=== PATIENT | male | born 1955 | race Caucasian/White ===

== ENCOUNTER 2018-07-24 10:07 | Outpatient (CLI) | payer MEDICARE, BC ==
[~2018-07-24 10:07] MED LIST: ISOVUE-370 76%-LOCM 1 ML ONE
--- NOTE | 2018-07-24 13:31 | CT ---
CONTRAST ENHANCED CT CHEST, ABDOMEN AND PELVIS: Date: 07-24-18 Comparison: CT from [facility], 10-24-16. FINDINGS: Contrast enhanced CT images of the chest, abdomen, and pelvis demonstrate some areas of lung parenchy mal scarring in the lung bases. Areas of patchy airspace opacity is also seen in the right middle lob e. These may represent chronic lung parenchymal changes. No evidence of mediastinal, axillary, or hilar lymphadenopathy are seen. Coronary artery calcificatio ns seen. The liver contains an area of hypodensity compatible with a stable hepatic cyst. No newly developed l esions seen. The gallbladder is grossly unremarkable and partially contracted. The pancreas is unrema rkable. The spleen is unremarkable. Adrenal glands and kidneys are again visualized. Areas of exophytic density seen in the lower pole of the right kidney measuring approximately 5.3 x 5.4 cm. This may represent a complex cyst. The overal l size is not significantly changed, however. The density is slightly more pronounced when compared t o the previous exam. I cannot exclude the possibility of a cystic neoplasm of the lower pole of the r ight kidney. Small exophytic cyst seen in posterior aspect of the left kidney. This is less pronounced and definit adelaida smaller than on the previous comparison CT from 2017. No evidence of periaortic lymphadenopathy seen. No definite evidence of pelvic or masses seen. 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 IMPRESSION: Exophytic lower pole right renal lesion appears to have a less cystic appearance and more of a periph eral solid appearance. I cannot exclude the possibility that this represents a developing lower lobe malignancy. The overall size of the lesion is, however, slightly smaller than on the previous exam fr om 2017. POS: [facility]
== END 2018-07-24 10:08 | disposition home or self-care (01) ==
LOC: BICCT 10:07
PROVIDERS: ATTEND Internal Medicine Medical Oncology
DX: C91.10 Chronic lymphocytic leukemia of B-cell type not having achieved remission (principal); N28.9 Disorder of kidney and ureter, unspecified
CPT/HCPCS: 71260; 74177

== ENCOUNTER 2018-08-02 08:37 | Outpatient (CLI) | payer MEDICARE, BC ==
[2018-08-02] MEDS ORDERED: Iopamidol 370 76% 100 ML VIAL ONE (14:47)
--- NOTE | 2018-08-05 07:27 | CT ---
CT ABDOMEN WITH AND WITHOUT CONTRAST: COMPARISON: Reference made to a CT from 07/24/2018. Reference also made to a CT from the [facility] from September 2016. FINDINGS: There is a complex, exophytic, cystic mass, which emanates from the lateral confines of the lower solange e of the right kidney. The mass measures 5.9 x 4.9 x 5.7 cm in diameter. There is a thick, peripher al, intrinsic, hyperdense complexity of the cyst, with subtle internal complex hyperdensity as well. There is associated enhancement suggested within the intrinsically hyperdense component. There is a cyst involving the posterior segment, right hepatic lobe. There are a few small hypodensi ties of the left kidney, too small to definitively characterize. There is a focal cleft of the later al cortical margin of the upper pole right kidney with insinuating hypodensity. This could relate to sequela from prior infarct. No adrenal mass. The spleen is unremarkable. No intrinsic pathology o f the pancreas. The bowel is incompletely evaluated without enteric contrast administration. Scatte red vascular disease is present. Scattered linear densities in the lung bases may relate to scar and /or atelectasis. There is granulomatous calcification at the left lung base. There is a nonspecific sclerotic focus of the L4 vertebral body. IMPRESSION: Findings indicative of a complex cystic mass emanating from the lower pole of the right kidney. Cyst ic renal cell carcinoma is the diagnosis of exclusion. A urologic consultation is recommended. POS: [facility]
== END 2018-08-02 08:38 | disposition home or self-care (01) ==
LOC: CT 08:37
PROVIDERS: ATTEND Internal Medicine Medical Oncology
DX: N28.1 Cyst of kidney, acquired (principal); N28.89 Other specified disorders of kidney and ureter
CPT/HCPCS: 74170; Q9967

== ENCOUNTER 2020-07-22 07:27 | Outpatient (CLI) | payer MEDICARE, BC ==
--- NOTE | 2020-07-22 09:09 | CT ---
EXAM: CT NECK SOFT TISSUE POST CONTRAST: HISTORY:CLL follow-up. COMPARISON:04/02/2014, 09/29/2009 CORRELATION:None FINDINGS: Brain parenchyma: Redemonstration of an arachnoid cyst identified but previously evaluated left middl e cranial fossa arachnoid cyst. Sinuses: Left maxillary sinus mucus retention cysts. Adequate mastoid air cell aeration. Orbits: Visualized orbits are grossly unremarkable. Nasopharynx:No mucosal abnormality. Oral cavity:Aerodigestive tract is patent. No mucosal abnormality. Limited evaluation of the oral cav ity due to dental amalgam artifact. Midline fatty raphae of the tongue is preserved. Hypopharynx: No mucosal abnormality. Epiglottis has a normal caliber. Preepiglottic fat is preserved .. Larynx: No mucosal abnormality with regards to the supraglottic, glottic and subglottic larynx. Paraspinal muscles: Symmetric attenuation of the paraspinal muscles and symmetric attenuation of the sternocleidomastoid muscles.. Parotid and salivary glands: Stable fatty attenuation of the parotid glands. No evidence of a intrapa rotid lesion. Symmetric attenuation of the submandibular glands. Vessels: No significant stenosis. Technique limits evaluation. Thyroid gland: Asymmetric prominence of the right thyroid lobe. There does appear to be isodense righ t thyroid lobe mass which is exophytic. Mass is best demonstrated on the coronal images and measures 2.9 cm in the craniocaudal dimension. Spine: Vertebral body height is maintained. No fracture. No significant central canal stenosis or sig nificant neural foraminal narrowing. Limited evaluation due to technique. Lymph nodes: Enlarged right level 5 lymph node measures 1.2 x 1.3 cm, previously measuring 0.8 x 0.9 cm. Upper normal left level 5 lymph node measures 1.2 x 0.6 cm, previously measuring 1.0 x 0.5 cm. Lung apices and upper mediastinum: Chronic lung parenchymal changes. IMPRESSION: 1. Bilateral level 5 lymph nodes as described above. Slight interval increase in size of both lymph n odes when compared to the examination from 2013. When compared to the examination from 2009, there is marked reduction of lymphadenopathy. 2. Exophytic right thyroid lobe nodule, best demonstrated on the coronal images. Dedicated thyroid ul trasound is recommended. CODE T
--- NOTE | 2020-07-22 09:23 | CT ---
CT OF THE CHEST WITH IV CONTRAST INDICATION: History of chronic lymphocytic leukemia COMPARISON: Prior CT of the chest, abdomen and pelvis dated July 24, 2018 and a CTA of the chest d ated July 10, 2017 FINDINGS: CHEST: Lungs: Mild scattered centrilobular emphysema is stable. The patchy tree-in-bud type nodular opacitie s of the right upper lobe have redistributed. There is a small residual area tree-in-bud nodularity involving the anterior right upper lobe on image 43. There is a new sub-4 mm pulmonary nodule within the right upper lobe on image 29 of series 3. There is new tree-in-bud nodular opacity within the posterior segment of the right upper lobe on image 25 of series 3 and image 31 of series 3. There is new tree-in-bud nodular opacities within the posterior lateral right lower lobe on image 54 series 3 and in the posterior medial right lower lobe on image 62 of series 3. This is present also in the l eft lower lobe on image 63 of series 3. There is a new 5 mm pulmonary nodule in the right lower lobe on image 48 of series 3. Pleural space: No effusion. Mediastinum: Coronary artery and thoracic aortic calcifications. No lymphadenopathy. Upper abdomen:Stable right hepatic lobe cyst and exophytic cyst partially solid mass off the lower po le right kidney measuring 5.2 cm. Smaller renal hypodensities and renal cortical scarring is similar. Osseous structures: No acute osseous abnormality. No destructive osteolytic or osteoblastic lesion i s identified. There is scattered degenerative and osteoarthritic changes. Soft tissues:Normal. IMPRESSION: 1. New areas of tree-in-bud nodular opacities seen within both lungs. Findings are more suspicious fo r a respiratory bronchiolitis related to the patient's COPD. Would recommend appropriate therapy and short-term CT follow-up in 6-8 weeks to document resolution. 2. No lymphadenopathy evident. 3. Stable partially solid mass off the lower pole the right kidney measuring 5.2 cm.
== END 2020-07-22 07:28 | disposition home or self-care (01) ==
LOC: BICCT 07:27
PROVIDERS: ATTEND Internal Medicine Medical Oncology
DX: C91.10 Chronic lymphocytic leukemia of B-cell type not having achieved remission (principal); D80.1 Nonfamilial hypogammaglobulinemia; R91.8 Other nonspecific abnormal finding of lung field; N28.89 Other specified disorders of kidney and ureter; E04.1 Nontoxic single thyroid nodule; R59.0 Localized enlarged lymph nodes
CPT/HCPCS: 70490; 71260; 74160

== ENCOUNTER 2020-09-06 14:28 | Outpatient (CLI) | payer MEDICARE, BC | END 2020-09-06 14:29 | disposition home or self-care (01) | LOC: BICRAD 14:28 | PROVIDERS: ATTEND Internal Medicine Pulmonary Disease | DX: R06.00 Dyspnea, unspecified (principal) | CPT/HCPCS: 71046 ==

== ENCOUNTER 2020-12-31 16:57 | Day surgery (SDC) | payer MEDICARE, BC ==
[2020-12-31] MEDS ORDERED: Cyclopentolate 1% Opth Drop 2 ML BOT FS SCH (17:15)
[2020-12-31] MEDS ORDERED: Phenylephrine 2.5% Ophth Soln 5 ML BOT FS SCH (17:15)
[2020-12-31] MEDS ORDERED: Fluorouracil 100 MG, Enoxaparin Sodium 25 MG, EPINEPHrine 0.3 MG, Dextrose 50% 3 ML in ... IRR SCH (17:15)
[2020-12-31] MEDS ORDERED: Phenylephrine 2.5% Ophth Soln 5 ML BOT ONE (17:38)
[2020-12-31] MEDS ORDERED: Cyclopentolate 1% Opth Drop 2 ML BOT ONE (17:38)
[2020-12-31] MEDS ORDERED: Fluorouracil 100 MG, Enoxaparin Sodium 25 MG, EPINEPHrine 0.3 MG in Ophthalmic Irrigati... IRR SCH (17:45)
[2020-12-31] MEDS ORDERED: Fentanyl 100 MCG/2 ML VIAL ONE (18:02)
[2020-12-31] MEDS ORDERED: Lidocaine 4% PF 5 ML AMP ONE (18:30)
[2020-12-31] MEDS ORDERED: ePHEDrine Sulfate 50 MG/10 ML VIAL ONE (18:30)
[2020-12-31] MEDS ORDERED: Maxitrol 0.1% Opth Oint 3.5 GM TUBE ONE (18:30)
[2020-12-31] MEDS ORDERED: Triamcinolone 40 MG/ML VIAL ONE (18:30)
[2020-12-31] MEDS ORDERED: Lidocaine 1% PF 5 ML VIAL ONE (18:30)
[2020-12-31] MEDS ORDERED: PROPOFOL 200 MG/20 ML VIAL ONE (18:30)
[2020-12-31] MEDS ORDERED: Rocuronium Bromide 10 MG/ML (10ML VIAL) ONE (18:30)
[2020-12-31] MEDS ORDERED: Ondansetron PF 4 MG/2 ML Vial ONE (18:30)
[2020-12-31] MEDS ORDERED: CEFAZOLIN 1 GM VIAL ONE (18:30)
[2020-12-31] MEDS ORDERED: Dexamethasone 20 MG/5 ML VIAL ONE (18:30)
[2020-12-31] MEDS ORDERED: Succinylcholine 200 MG/10 ml SYRINGE FS ONE (18:30)
[2020-12-31] MEDS ORDERED: Bupivacaine PF 0.75% SDV 10 ML ONE (18:30)
[2020-12-31] MEDS ORDERED: Enoxaparin Sodium 30 MG/0.3 ML SYRINGE ONE (18:30)
[2020-12-31] MEDS ORDERED: SUGAMMADEX SODIUM 500 MG/5 ML VIAL ONE (19:10)
== END 2020-12-31 21:02 | disposition home or self-care (01) ==
LOC: SDC/OP 16:57
PROVIDERS: ATTEND Ophthalmology Retina Specialist
PROC: 08T43ZZ Resection of Right Vitreous, Percutaneous Approach (ICD-10-PCS; principal; 2020-12-31)
PROC: 08QE3ZZ Repair Right Retina, Percutaneous Approach (ICD-10-PCS; 2020-12-31)
DX: H33.021 Retinal detachment with multiple breaks, right eye (principal)
CPT/HCPCS: 67025; 93005; 93010; J0171; J0690; J1100; J1650; J2405; J2704; J3010; J3301; J3490; J9190

== ENCOUNTER 2021-05-17 11:36 | Outpatient (CLI) | payer MEDICARE, BC ==
[2021-05-17] MEDS ORDERED: Magnevist 469MG/ML 20 ML VIAL ONE (11:45)
== END 2021-05-17 11:37 | disposition home or self-care (01) ==
LOC: MRI 11:36
PROVIDERS: ATTEND Nurse Practitioner Acute Care
DX: R41.3 Other amnesia (principal)
CPT/HCPCS: 70553; 82565

== ENCOUNTER 2022-04-12 13:36 | Outpatient (CLI) | payer MEDICARE, BC | END 2022-04-12 13:37 | disposition home or self-care (01) | LOC: BICCT 13:36 | PROVIDERS: ATTEND Internal Medicine | DX: J44.9 Chronic obstructive pulmonary disease, unspecified (principal); R91.8 Other nonspecific abnormal finding of lung field | CPT/HCPCS: 71250 ==

== ENCOUNTER 2022-05-15 11:57 | Outpatient (CLI) | payer MEDICARE, BC ==
[2022-05-15 12:49] LABS: #Eosinphils 0.3 10x3/uL (0.0-0.5); #Monocytes 0.4 10x3/uL (0.0-1.1); #Neutrophils 3.4 10x3/uL (1.5-8.4); %Basophils 0.6 % (0.0-2.0); %Eosinophils 4.1 % (0.0-6.0); %Lymphocytes 35.6 % (18.0-47.0); %Monocytes 5.8 % (0.0-10.0); %Neutrophils 53.6 % (40.0-75.0); Hemoglobin 12.9 g/dL (13.5-17.5); Mean Corpuscular HGB CONC 33.8 g/dL (32.0-36.0); Mean Corpuscular Hemoglobin 31.2 pg (27.0-33.0); Mean Corpuscular Volume 92.5 fl (81.2-95.1); Mean Platelet Volume 10.9 fl (7.4-10.4); Platelet Count 119 10x3/uL (150-450); RBC Distribution Width 13.9 % (11.5-14.5); Red Blood Cell (RBC) Count 4.13 10x6/uL (4.32-5.72); White Blood Cell (WBC) Count 6.4 10x3/uL (3.5-10.5)
[2022-05-15 13:08] LABS: Anion Gap 13 mmol/L (10-20); BUN (Urea Nitrogen) 14 mg/dL (8.4-25.7); Calc. Creatinine Clearance 0 mL/min (70-130); Calcium 8.6 mg/dL (7.8-10.44); Carbon Dioxide 23 mmol/L (23-31); Chloride 107 mmol/L (98-107); Estimated GFR 94; Glucose 135 mg/dL (80-115); Potassium 3.9 mmol/L (3.5-5.1); Sodium 139 mmol/L (136-145)
== END 2022-05-15 11:58 | disposition home or self-care (01) ==
LOC: LABBT 11:57
PROVIDERS: ATTEND Specialist
DX: Z01.818 Encounter for other preprocedural examination (principal); C91.10 Chronic lymphocytic leukemia of B-cell type not having achieved remission
CPT/HCPCS: 80048; 85025; 93005; 93010

== ENCOUNTER 2022-05-17 09:19 | Day surgery (SDC) | payer MEDICARE, BC ==
[2022-05-16 15:39] VITALS: BMI 46.1
[2022-05-17] MEDS ORDERED: Lidocaine 1% PF 5 ML VIAL ONE (09:40)
[2022-05-17] MEDS ORDERED: Bupivacaine HCl 0.5%/Epinephrine 1:200,000/PF 30 ml Vial ONE (09:40)
[2022-05-17] MEDS ORDERED: Lidocaine 2% PF 5 ML VIAL ONE (09:42)
[2022-05-17] MEDS ORDERED: fentaNYL PF 100 MCG/2 ML SYRINGE ONE (11:14)
[2022-05-17] MEDS ORDERED: Bupivacaine/Epinephrine 0.25% 30 ML VIAL ONE (11:23)
[2022-05-17] MEDS ORDERED: CEFAZOLIN 2 GM VIAL ONE (11:26)
[2022-05-17] MEDS ORDERED: Sodium Chloride 0.9% 100 ML ONE (11:26)
[2022-05-17] MEDS ORDERED: PROPOFOL 200 MG/20 ML VIAL ONE (11:38)
[2022-05-17] MEDS ORDERED: Dexamethasone 20 MG/5 ML VIAL ONE (11:38)
[2022-05-17] MEDS ORDERED: Ondansetron PF 4 MG/2 ML Vial ONE (11:38)
[2022-05-17] MEDS ORDERED: PHENYLEPHRINE-NS 100 MCG/ML 10 ML SYRINGE ONE (11:38)
== END 2022-05-17 14:07 | disposition home or self-care (01) ==
LOC: SDC 09:19
PROVIDERS: ATTEND Specialist
PROC: 0JH60WZ Insertion of Totally Implantable Vascular Access Device into Chest Subcutaneous Tissue and Fascia, Open Approach (ICD-10-PCS; principal; 2022-05-17)
PROC: 02HV33Z Insertion of Infusion Device into Superior Vena Cava, Percutaneous Approach (ICD-10-PCS; 2022-05-17)
DX: C91.10 Chronic lymphocytic leukemia of B-cell type not having achieved remission (principal); D63.0 Anemia in neoplastic disease; I48.91 Unspecified atrial fibrillation; J45.909 Unspecified asthma, uncomplicated; F17.210 Nicotine dependence, cigarettes, uncomplicated; E66.01 Morbid (severe) obesity due to excess calories; Z68.42 Body mass index [BMI] 45.0-49.9, adult; Z79.899 Other long term (current) drug therapy
CPT/HCPCS: 71045; C1788; J1100; J1642; J2001; J2405; J2704; J3490

== ENCOUNTER 2022-06-21 20:01 | Emergency (ER) | payer MEDICARE, BC ==
[2022-06-21 20:46] LABS: #Eosinphils 0.2 thou/uL (0.0-0.7); #Lymphocytes 2.3 thou/uL (1.20-3.40); #Monocytes 0.4 thou/uL (0.11-0.59); #Neutrophils 3.8 thou/uL (1.40-6.50); %Basophils 0.1 % (0.0-1.0); %Eosinophils 3.2 % (0.0-10.0); %Lymphocytes 34.2 % (21.0-51.0); %Monocytes 5.6 % (0.0-10.0); %Neutrophils 56.9 % (42.0-75.0); Hemoglobin 12.7 g/dL (14.0-18.0); Mean Corpuscular HGB CONC 34.2 g/dL (32.0-36.0); Mean Corpuscular Hemoglobin 32.3 pg (27.0-31.0); Mean Corpuscular Volume 94.2 fl (78.0-98.0); Mean Platelet Volume 8.9 fL (7.4-10.4); Platelet Count 123 10x3/uL (130-400); RBC Distribution Width 13.1 % (11.5-14.5); Red Blood Cell (RBC) Count 3.95 mill/uL (4.70-6.10); White Blood Cell (WBC) Count 6.6 10x3/uL (4.8-10.8)
[2022-06-21] MEDS ORDERED: Ketorolac Tromethamine 30 MG/ML VIAL ONE (20:51)
[2022-06-21] MEDS ORDERED: Clindamycin/D5W 900 mg/50 ml Premix Bag ONE (20:51)
[2022-06-21] MEDS ORDERED: Lidocaine 4% Cream 5 GM TUBE w/ Tegaderm ONE ×2 (20:54→21:28)
[2022-06-21] MEDS ORDERED: Diltiazem HCl 125 MG, Admixture Fee 1 EACH in Sodium Chloride 0.9% 100 ML IVPB SCH (21:00)
[2022-06-21 21:10] LABS: ALT (SGPT) 14 U/L (8-55); AST (SGOT) 31 U/L (5-34); Albumin 3.9 g/dL (3.4-4.8); Alkaline Phosphatase 75 U/L (40-110); Anion Gap 14 mmol/L (10-20); BUN (Urea Nitrogen) 10 mg/dL (8.4-25.7); Bilirubin, Total 0.7 mg/dL (0.2-1.2); Calc. Creatinine Clearance 0 mL/min (70-130); Calcium 8.9 mg/dL (7.8-10.44); Carbon Dioxide 24 mmol/L (23-31); Chloride 105 mmol/L (98-107); Estimated GFR 76; Glucose 76 mg/dL (80-115); Potassium 3.8 mmol/L (3.5-5.1); Protein, Total 6.9 g/dL (5.8-8.1); Sodium 139 mmol/L (136-145)
== END 2022-06-21 22:14 | disposition left against medical advice (07) ==
LOC: ERS 20:01
DX: M70.42 Prepatellar bursitis, left knee (principal); I48.91 Unspecified atrial fibrillation; L03.116 Cellulitis of left lower limb; I10 Essential (primary) hypertension; E78.5 Hyperlipidemia, unspecified; J44.9 Chronic obstructive pulmonary disease, unspecified; F17.210 Nicotine dependence, cigarettes, uncomplicated; Z79.899 Other long term (current) drug therapy
CPT/HCPCS: 36415; 80053; 83605; 83880; 84484; 85025; 87040; 87070; 87205; 93005; 94760; 96374; 96375; 96376; J1885; J3490

== ENCOUNTER 2022-12-15 23:38 | Observation (INO) | payer MEDICARE, BC ==
[~2022-12-15 23:38] MED LIST changes: -ISOVUE-370 76%-LOCM 1 ML ONE; +Iopamidol-370 76% 500 ML MDV (1 ML CHARGE) ONE
[2022-12-15 23:58] LABS: #Basophils 0.1 thou/uL (0.0-0.2); #Eosinphils 0.3 thou/uL (0.0-0.7); #Monocytes 0.3 thou/uL (0.11-0.59); #Neutrophils 2.8 thou/uL (1.40-6.50); %Basophils 0.9 % (0.0-1.0); %Eosinophils 4.8 % (0.0-10.0); %Lymphocytes 39.7 % (21.0-51.0); %Monocytes 5.9 % (0.0-10.0); Hemoglobin 13.2 g/dL (14.0-18.0); Mean Corpuscular HGB CONC 33.9 g/dL (32.0-36.0); Mean Corpuscular Hemoglobin 31.8 pg (27.0-31.0); Mean Corpuscular Volume 93.7 fl (78.0-98.0); Mean Platelet Volume 10.8 fL (7.4-10.4); Platelet Count 110 10x3/uL (130-400); RBC Distribution Width 14.1 % (11.5-14.5); Red Blood Cell (RBC) Count 4.15 mill/uL (4.70-6.10); White Blood Cell (WBC) Count 5.8 10x3/uL (4.8-10.8)
[2022-12-16 00:12] LABS: ALT (SGPT) 7 U/L (8-55); AST (SGOT) 20 U/L (5-34); Albumin 3.6 g/dL (3.4-4.8); Alkaline Phosphatase 55 U/L (40-110); Anion Gap 12 mmol/L (10-20); BUN (Urea Nitrogen) 15 mg/dL (8.4-25.7); Bilirubin, Total 0.8 mg/dL (0.2-1.2); CK (CPK) 102 U/L (30-200); Calc. Creatinine Clearance 0 mL/min (70-130); Calcium 8.7 mg/dL (7.8-10.44); Carbon Dioxide 19 mmol/L (23-31); Chloride 110 mmol/L (98-107); Estimated GFR 72; Globulin 2.5 g/dL (2.4-3.5); Glucose 123 mg/dL (80-115); Potassium 4.1 mmol/L (3.5-5.1); Protein, Total 6.1 g/dL (5.8-8.1); Sodium 137 mmol/L (136-145)
[2022-12-16 00:28] LABS: INR-International Normal Ratio 0.9; Prothrombin Time 12.9 sec (12.0-14.7)
[2022-12-16 00:47] LABS: Anisocytosis SLIGHT = 6-15 cells HPF (0-5); CellaVision Operator ID LAB.JMM; Platelet Adequacy Comment Platelets Decreased; Polychromasia SLIGHT = 2-3 cells HPF (0-2)
[2022-12-16] MEDS ORDERED: Aspirin Chewable 81 MG TAB ONE (01:15)
[2022-12-16] MEDS ORDERED: Albuterol 200 PUFF (6.7GM INHALER) INH PRN (01:49)
[2022-12-16 04:03] VITALS: BMI 45.9
[2022-12-16 05:35] LABS: #Eosinphils 0.3 thou/uL (0.0-0.7); #Monocytes 0.4 thou/uL (0.11-0.59); #Neutrophils 3.1 thou/uL (1.40-6.50); %Basophils 0.5 % (0.0-1.0); %Eosinophils 4.8 % (0.0-10.0); %Lymphocytes 35.6 % (21.0-51.0); %Neutrophils 52.3 % (42.0-75.0); Mean Corpuscular HGB CONC 34.4 g/dL (32.0-36.0); Mean Corpuscular Hemoglobin 32.1 pg (27.0-31.0); Mean Corpuscular Volume 93.3 fl (78.0-98.0); Mean Platelet Volume 10.7 fL (7.4-10.4); RBC Distribution Width 14.1 % (11.5-14.5); Red Blood Cell (RBC) Count 4.05 mill/uL (4.70-6.10)
[2022-12-16 05:57] LABS: Anion Gap 9 mmol/L (10-20); BUN (Urea Nitrogen) 13 mg/dL (8.4-25.7); Calc. Creatinine Clearance 147 mL/min (70-130); Calcium 8.8 mg/dL (7.8-10.44); Carbon Dioxide 25 mmol/L (23-31); Chloride 107 mmol/L (98-107); Estimated GFR 76; Glucose 90 mg/dL (80-115); Potassium 3.8 mmol/L (3.5-5.1); Sodium 137 mmol/L (136-145)
[2022-12-16 06:40] LABS: Platelet Count 106 10x3/uL (130-400)
[2022-12-16] MEDS: Aspirin 81 mg Enteric Coated Tablet PO SCH (09:16)
[2022-12-16] MEDS ORDERED: Sotalol HCl 80 MG TAB PO SCH ×2 (12:00)
[2022-12-16] MEDS: Nystatin 500,000 UNITS/5 ML UDCUP SSW SCH ×3 (12:23→20:04)
[2022-12-16] MEDS: Sacubitril 49 MG/Valsartan 51 MG TABLET PO SCH (20:02)
[2022-12-16] MEDS: Sotalol HCl 80 MG TAB PO SCH (20:03)
[2022-12-16] MEDS ORDERED: Tamsulosin HCl 0.4 MG CAP PO SCH (21:00)
[2022-12-16] MEDS ORDERED: Simvastatin 10 MG TAB PO SCH (21:00)
[2022-12-16] MEDS ORDERED: Sertraline 100 MG TAB PO SCH (21:00)
[2022-12-17] MEDS ORDERED: Empagliflozin 10 MG TAB PO SCH (09:00)
[2022-12-17] MEDS ORDERED: Potassium Chloride 8 MEQ TAB PO SCH (09:00)
[2022-12-17] MEDS ORDERED: Furosemide 20 MG TAB PO SCH (09:00)
[2022-12-17] MEDS: Aspirin 81 mg Enteric Coated Tablet PO SCH (09:44)
[2022-12-17] MEDS: Nystatin 500,000 UNITS/5 ML UDCUP SSW SCH ×2 (09:44→12:48)
[2022-12-17] MEDS: Sotalol HCl 80 MG TAB PO SCH (09:44)
[2022-12-17] MEDS: Sacubitril 49 MG/Valsartan 51 MG TABLET PO SCH (09:45)
[2022-12-17 11:30] VITALS: BP 144/93; TEMP 97.7
== END 2022-12-17 13:30 | disposition home or self-care (01) ==
LOC: ERS 23:38 → NEURO 12-16 00:56
PROVIDERS: ADMIT Family Medicine; ATTEND Internal Medicine
DX: R53.1 Weakness (principal); I48.91 Unspecified atrial fibrillation; C85.90 Non-Hodgkin lymphoma, unspecified, unspecified site; I11.0 Hypertensive heart disease with heart failure; I50.22 Chronic systolic (congestive) heart failure; I25.10 Atherosclerotic heart disease of native coronary artery without angina pectoris; N40.0 Benign prostatic hyperplasia without lower urinary tract symptoms; R47.81 Slurred speech; J44.9 Chronic obstructive pulmonary disease, unspecified; F41.8 Other specified anxiety disorders; F17.210 Nicotine dependence, cigarettes, uncomplicated; E78.5 Hyperlipidemia, unspecified; Z90.89 Acquired absence of other organs; Z79.82 Long term (current) use of aspirin; Z79.899 Other long term (current) drug therapy
CPT/HCPCS: 70450; 70496; 70498; 71045; 76536; 80048; 82140; 82550; 84484; 85025; 85610; 85730; 93005; 93306; 96372; 99285; G0378 ×3; 36415; 80053; 84443; J1650; Q9967

== ENCOUNTER 2023-01-11 09:12 | Outpatient (CLI) | payer MEDICARE, BC | END 2023-01-11 09:13 | disposition home or self-care (01) | LOC: CT 09:12 | PROVIDERS: ATTEND Internal Medicine Medical Oncology | DX: C91.10 Chronic lymphocytic leukemia of B-cell type not having achieved remission (principal); R59.0 Localized enlarged lymph nodes | CPT/HCPCS: 71260; 74177 ==

== ENCOUNTER 2023-04-08 00:38 | Emergency (ER) | payer MEDICARE, BC ==
[2023-04-08 01:22] LABS: #Eosinphils 0.2 thou/uL (0.0-0.7); #Monocytes 0.3 thou/uL (0.11-0.59); #Neutrophils 4.7 thou/uL (1.40-6.50); %Basophils 0.5 % (0.0-1.0); %Eosinophils 2.3 % (0.0-10.0); %Monocytes 3.6 % (0.0-10.0); %Neutrophils 62.2 % (42.0-75.0); Hematocrit 38.7 % (42.0-52.0); Hemoglobin 13.4 g/dL (14.0-18.0); Mean Corpuscular HGB CONC 34.6 g/dL (32.0-36.0); Mean Corpuscular Hemoglobin 32.5 pg (27.0-31.0); Mean Corpuscular Volume 93.9 fl (78.0-98.0); Mean Platelet Volume 11.1 fL (7.4-10.4); Platelet Count 105 10x3/uL (130-400); RBC Distribution Width 13.8 % (11.5-14.5); Red Blood Cell (RBC) Count 4.12 mill/uL (4.70-6.10); White Blood Cell (WBC) Count 7.5 10x3/uL (4.8-10.8)
[2023-04-08] MEDS ORDERED: cefTRIAXone (ROCEPHIN) 2 GM VIAL ONE (01:48)
[2023-04-08 01:49] LABS: ALT (SGPT) 7 U/L (8-55); AST (SGOT) 18 U/L (5-34); Albumin 3.9 g/dL (3.4-4.8); Alkaline Phosphatase 62 U/L (40-110); Anion Gap 13 mmol/L (10-20); BUN (Urea Nitrogen) 16 mg/dL (8.4-25.7); Bilirubin, Total 0.6 mg/dL (0.2-1.2); Calc. Creatinine Clearance 0 mL/min (70-130); Calcium 8.8 mg/dL (7.8-10.44); Carbon Dioxide 22 mmol/L (23-31); Chloride 107 mmol/L (98-107); Estimated GFR 67; Globulin 2.7 g/dL (2.4-3.5); Glucose 122 mg/dL (80-115); Potassium 4.2 mmol/L (3.5-5.1); Protein, Total 6.6 g/dL (5.8-8.1); Sodium 138 mmol/L (136-145)
[2023-04-08 01:59] LABS: Troponin I Less than 0.010 ng/mL (< 0.028)
[2023-04-08] MEDS ORDERED: Azithromycin 500 MG VIAL ONE (02:20)
[2023-04-08 02:53] LABS: SARS-CoV-2 NAA Rapid Test Not Detected (NotDetected)
== END 2023-04-08 03:39 | disposition home or self-care (01) ==
LOC: ERS 00:38
DX: J18.9 Pneumonia, unspecified organism (principal); I48.91 Unspecified atrial fibrillation; I10 Essential (primary) hypertension; E78.5 Hyperlipidemia, unspecified; I25.10 Atherosclerotic heart disease of native coronary artery without angina pectoris; J44.9 Chronic obstructive pulmonary disease, unspecified; F17.210 Nicotine dependence, cigarettes, uncomplicated; Z79.899 Other long term (current) drug therapy; Z20.822 Contact with and (suspected) exposure to COVID-19
CPT/HCPCS: 0240U; 71046; 80053; 83605; 83880; 84484; 85025; 87040; 93005; J0456; 36415; 96365; 96367; J0696

== ENCOUNTER 2023-04-12 13:29 | Outpatient (CLI) | payer MEDICARE, BC | END 2023-04-12 13:30 | disposition home or self-care (01) | LOC: BICCT 13:29 | PROVIDERS: ATTEND Internal Medicine | DX: J44.9 Chronic obstructive pulmonary disease, unspecified (principal); R91.8 Other nonspecific abnormal finding of lung field; R59.0 Localized enlarged lymph nodes; E04.9 Nontoxic goiter, unspecified | CPT/HCPCS: 71250 ==

== ENCOUNTER 2023-06-22 18:45 | Inpatient (IN) | payer MEDICARE, BC ==
[2023-06-22 19:28] LABS: #Monocytes 0.5 thou/uL (0.11-0.59); #Neutrophils 8.9 thou/uL (1.40-6.50); %Basophils 0.2 % (0.0-1.0); %Eosinophils 0.2 % (0.0-10.0); %Monocytes 4.2 % (0.0-10.0); Hematocrit 37.7 % (42.0-52.0); Mean Corpuscular HGB CONC 34.5 g/dL (32.0-36.0); Mean Corpuscular Hemoglobin 32.1 pg (27.0-31.0); Mean Corpuscular Volume 93.1 fl (78.0-98.0); Mean Platelet Volume 11.2 fL (7.4-10.4); Platelet Count 120 10x3/uL (130-400); Red Blood Cell (RBC) Count 4.05 mill/uL (4.70-6.10); White Blood Cell (WBC) Count 10.6 10x3/uL (4.8-10.8)
[2023-06-22] MEDS ORDERED: Cefepime 2 GM VIAL ONE (19:48)
[2023-06-22] MEDS ORDERED: Vancomycin 1 GM/200 ML (FROZEN) BAG ONE (19:49)
[2023-06-22] MEDS ORDERED: dilTIAZem 25 MG/5 ML VIAL ONE (19:49)
[2023-06-22] MEDS ORDERED: Sodium Chloride 0.9% 100 ML ONE (19:49)
[2023-06-22 19:51] LABS: ALT (SGPT) Less than 7 U/L (8-55); AST (SGOT) 12 U/L (5-34); Albumin 3.8 g/dL (3.4-4.8); Alkaline Phosphatase 56 U/L (40-110); Anion Gap 12 mmol/L (10-20); BUN (Urea Nitrogen) 12 mg/dL (8.4-25.7); Bilirubin, Total 1.4 mg/dL (0.2-1.2); Calc. Creatinine Clearance 0 mL/min (70-130); Calcium 8.6 mg/dL (7.8-10.44); Carbon Dioxide 24 mmol/L (23-31); Chloride 104 mmol/L (98-107); Estimated GFR 68; Globulin 2.3 g/dL (2.4-3.5); Glucose 116 mg/dL (80-115); Magnesium 1.3 mg/dL (1.6-2.6); Potassium 3.7 mmol/L (3.5-5.1); Protein, Total 6.1 g/dL (5.8-8.1); Sodium 136 mmol/L (136-145)
[2023-06-22 19:52] LABS: Bacteria/HPF 1+ HPF (None Seen); Bilirubin Negative (Negative); Blood, Urine 2+ (Negative); CAUTI Indications for Culture Dysuria,urgency,freq; Clarity Turbid (Clear); Glucose, Urine (Dipstick) Normal (Negative); Ketone, Urine Negative (Negative); Leukocyte 500 Leu/uL (Negative); Mucous/LPF Rare LPF (<2+); Nitrite Negative (Negative); Protein, Urine (Dipstick) 100 mg/dL (Neg-Trace); Renal Epithelial 0-3 HPF (None Seen); Specific Gravity, Urine 1.022 (1.002-1.036); Squamous Epithelial 0-3 HPF (0-3); Transitional Epithelial 0-3 HPF (None Seen); WBC/HPF Greater than 50 HPF (0-3); pH, Urine 7.5 (5.0-9.0)
[2023-06-22 19:53] LABS: Urine Culture Reflex Yes Yes
[2023-06-22 19:55] LABS: PTT 26.6 sec (22.9-36.1); Prothrombin Time 13.7 sec (12.0-14.7)
[2023-06-22 19:59] LABS: Troponin I Less than 0.010 ng/mL (< 0.028)
[2023-06-22 20:27] LABS: SARS-CoV-2 NAA Rapid Test Not Detected (NotDetected)
[2023-06-22] MEDS ORDERED: Magnesium 2 GM/50 ML BAG (IN WATER) ONE (20:36)
[2023-06-22 22:27] LABS: Lactic Acid 2.6 mmol/L (0.5-2.2)
[2023-06-22] MEDS ORDERED: dilTIAZem 125 MG/25 ML SDV ONE (22:34)
[2023-06-23] MEDS ORDERED: Digoxin 0.5 MG/2 ML AMP ONE (00:52)
[2023-06-23 02:01] VITALS: BMI 42.9
[2023-06-23] MEDS ORDERED: Ondansetron PF 4 MG/2 ML Vial IVP PRN (03:53)
[2023-06-23] MEDS ORDERED: Acetaminophen 325 MG TAB PO PRN (03:53)
[2023-06-23] MEDS ORDERED: dilTIAZem 125 MG in Sodium Chloride 0.9% 100 ML IVPB SCH (04:00)
[2023-06-23] MEDS ORDERED: Ipratropium/Albuterol 3 ML NEB EZPAP PRN (04:08)
[2023-06-23 04:24] LABS: Hematocrit 36.1 % (42.0-52.0); Hemoglobin 12.5 g/dL (14.0-18.0); Manual Diff?? YES; Mean Corpuscular HGB CONC 34.6 g/dL (32.0-36.0); Mean Corpuscular Hemoglobin 32.9 pg (27.0-31.0); Mean Platelet Volume 11.3 fL (7.4-10.4); Platelet Count 97 10x3/uL (130-400); RBC Distribution Width 14.2 % (11.5-14.5); White Blood Cell (WBC) Count 10.4 10x3/uL (4.8-10.8)
[2023-06-23 04:34] LABS: Delete Auto Diff?? YES
[2023-06-23 04:39] LABS: Lactic Acid 2.1 mmol/L (0.5-2.2)
[2023-06-23 04:43] LABS: Anion Gap 15 mmol/L (10-20); BUN (Urea Nitrogen) 14 mg/dL (8.4-25.7); Calc. Creatinine Clearance 129 mL/min (70-130); Calcium 8.2 mg/dL (7.8-10.44); Carbon Dioxide 22 mmol/L (23-31); Chloride 106 mmol/L (98-107); Estimated GFR 71; Glucose 113 mg/dL (80-115); Magnesium 1.6 mg/dL (1.6-2.6); Potassium 4.1 mmol/L (3.5-5.1); Sodium 139 mmol/L (136-145)
[2023-06-23 04:56] LABS: Band 23 % (5-11); CellaVision Operator ID LAB.CLH1; Lymphocytes 14 % (21-51); Macrocytosis SLIGHT = 6-15 cells HPF (0-5); Monocytes 3 % (0-10); Neutrophil 60 % (42-75); Platelet Adequacy Comment Platelets Decreased; Polychromasia SLIGHT = 2-3 cells HPF (0-2); Total Cell Count 99
[2023-06-23] MEDS: Ipratropium Bromide 2.5 ml Neb NEB SCH ×3 (08:12→19:17)
[2023-06-23] MEDS: cefTRIAXone\\ROCEPHIN 2 GM in Sodium Chloride 0.9% 100 ML IVPB SCH (08:26)
[2023-06-23] MEDS: Sacubitril 49 MG/Valsartan 51 MG TABLET PO SCH ×2 (08:27→20:01)
[2023-06-23] MEDS: Simvastatin 5 MG TAB PO SCH (08:27)
[2023-06-23] MEDS: Sertraline 25 MG TAB PO SCH (08:27)
[2023-06-23] MEDS: Tamsulosin HCl 0.4 MG CAP PO SCH (08:28)
[2023-06-23] MEDS: Sotalol HCl 80 MG TAB PO SCH ×2 (08:28→20:01)
[2023-06-23] MEDS ORDERED: Furosemide 20 MG TAB PO SCH (09:00)
[2023-06-24] MEDS: Ipratropium Bromide 2.5 ml Neb NEB SCH ×4 (00:56→18:54)
[2023-06-24 05:28] LABS: Hematocrit 34.9 % (42.0-52.0); Hemoglobin 11.9 g/dL (14.0-18.0); Manual Diff?? YES; Mean Corpuscular HGB CONC 34.1 g/dL (32.0-36.0); Mean Corpuscular Hemoglobin 32.2 pg (27.0-31.0); Mean Corpuscular Volume 94.3 fl (78.0-98.0); Mean Platelet Volume 12.2 fL (7.4-10.4); RBC Distribution Width 14.3 % (11.5-14.5); White Blood Cell (WBC) Count 8.5 10x3/uL (4.8-10.8)
[2023-06-24 05:30] LABS: Delete Auto Diff?? YES; Platelet Count 80 10x3/uL (130-400)
[2023-06-24 05:47] LABS: Anion Gap 13 mmol/L (10-20); BUN (Urea Nitrogen) 19 mg/dL (8.4-25.7); Calc. Creatinine Clearance 145 mL/min (70-130); Calcium 8.3 mg/dL (7.8-10.44); Carbon Dioxide 20 mmol/L (23-31); Chloride 106 mmol/L (98-107); Estimated GFR 82; Glucose 105 mg/dL (80-115); Magnesium 1.7 mg/dL (1.6-2.6); Potassium 3.4 mmol/L (3.5-5.1); Sodium 136 mmol/L (136-145)
[2023-06-24 06:20] LABS: Band 11 % (5-11); CellaVision Operator ID lab.sh2; Dohle Bodies SLIGHT; Eosinophils 2 % (0-10); Lymphocytes 21 % (21-51); Neutrophil 67 % (42-75); Platelet Adequacy Comment Platelets Decreased; Polychromasia SLIGHT = 2-3 cells HPF (0-2); Smudge Cells 13.7 %; Tear Drops SLIGHT = 2-5 cells HPF (0-1); Total Cell Count 102; Vacuoles SLIGHT
[2023-06-24] MEDS: cefTRIAXone\\ROCEPHIN 2 GM in Sodium Chloride 0.9% 100 ML IVPB SCH (08:43)
[2023-06-24] MEDS: Sacubitril 49 MG/Valsartan 51 MG TABLET PO SCH ×2 (08:43→20:17)
[2023-06-24] MEDS: Tamsulosin HCl 0.4 MG CAP PO SCH (08:44)
[2023-06-24] MEDS: Sotalol HCl 80 MG TAB PO SCH ×2 (08:44→20:17)
[2023-06-24] MEDS: Simvastatin 5 MG TAB PO SCH (08:44)
[2023-06-24] MEDS: Sertraline 25 MG TAB PO SCH (08:44)
[2023-06-24] MEDS ORDERED: Potassium Chloride 20 MEQ TAB PO SCH (10:45)
[2023-06-24] MEDS: Ciprofloxacin 500 MG TAB PO SCH (20:17)
[2023-06-25] MEDS: Ipratropium Bromide 2.5 ml Neb NEB SCH ×3 (01:17→12:12)
[2023-06-25 05:20] LABS: #Eosinphils 0.2 thou/uL (0.0-0.7); #Monocytes 0.4 thou/uL (0.11-0.59); #Neutrophils 3.3 thou/uL (1.40-6.50); %Basophils 0.4 % (0.0-1.0); %Eosinophils 3.2 % (0.0-10.0); %Lymphocytes 26.8 % (21.0-51.0); %Monocytes 6.9 % (0.0-10.0); %Neutrophils 61.6 % (42.0-75.0); Hematocrit 33.8 % (42.0-52.0); Hemoglobin 11.6 g/dL (14.0-18.0); Mean Corpuscular HGB CONC 34.3 g/dL (32.0-36.0); Mean Corpuscular Hemoglobin 32.1 pg (27.0-31.0); Mean Corpuscular Volume 93.6 fl (78.0-98.0); Red Blood Cell (RBC) Count 3.61 mill/uL (4.70-6.10); White Blood Cell (WBC) Count 5.4 10x3/uL (4.8-10.8)
[2023-06-25 05:28] LABS: Platelet Count 70 10x3/uL (130-400)
[2023-06-25 05:45] LABS: Anion Gap 12 mmol/L (10-20); BUN (Urea Nitrogen) 17 mg/dL (8.4-25.7); Calc. Creatinine Clearance 169 mL/min (70-130); Calcium 8.2 mg/dL (7.8-10.44); Carbon Dioxide 21 mmol/L (23-31); Chloride 107 mmol/L (98-107); Estimated GFR 93; Glucose 95 mg/dL (80-115); Magnesium 1.7 mg/dL (1.6-2.6); Potassium 3.2 mmol/L (3.5-5.1); Sodium 137 mmol/L (136-145)
[2023-06-25] MEDS: Ciprofloxacin 500 MG TAB PO SCH (05:53)
[2023-06-25] MEDS: Sacubitril 49 MG/Valsartan 51 MG TABLET PO SCH (08:21)
[2023-06-25] MEDS: Tamsulosin HCl 0.4 MG CAP PO SCH (08:22)
[2023-06-25] MEDS: Sotalol HCl 80 MG TAB PO SCH (08:22)
[2023-06-25] MEDS: Simvastatin 5 MG TAB PO SCH (08:22)
[2023-06-25] MEDS: Sertraline 25 MG TAB PO SCH (08:22)
[2023-06-25 11:28] VITALS: BP 134/88; TEMP 97.8
[2023-06-25] MEDS ORDERED: Potassium Chloride 20 MEQ TAB PO SCH (11:45)
[2023-06-25] MEDS ORDERED: Sertraline 25 MG TAB PO SCH (21:00)
[2023-06-26 11:11] LABS: Campy jejuni + coli by PCR Negative (Negative); STEC Shiga Toxin 1+2 Negative (Negative); Salmonella spp. by PCR Negative (Negative); Shigella spp + EIEC by PCR Negative (Negative)
== END 2023-06-25 14:16 | disposition home or self-care (01) | DRG 872 ==
LOC: ERS 18:45 → 2NO 23:56
PROVIDERS: ADMIT Internal Medicine; ATTEND Internal Medicine
DX: A41.51 Sepsis due to Escherichia coli [E. coli] (principal); C91.10 Chronic lymphocytic leukemia of B-cell type not having achieved remission; E87.20 Acidosis, unspecified; N30.00 Acute cystitis without hematuria; C85.90 Non-Hodgkin lymphoma, unspecified, unspecified site; D84.821 Immunodeficiency due to drugs; I50.22 Chronic systolic (congestive) heart failure; I48.0 Paroxysmal atrial fibrillation; E78.5 Hyperlipidemia, unspecified; N40.0 Benign prostatic hyperplasia without lower urinary tract symptoms; J44.9 Chronic obstructive pulmonary disease, unspecified; I25.10 Atherosclerotic heart disease of native coronary artery without angina pectoris; F17.210 Nicotine dependence, cigarettes, uncomplicated; E83.42 Hypomagnesemia; F90.9 Attention-deficit hyperactivity disorder, unspecified type; I11.0 Hypertensive heart disease with heart failure; G47.33 Obstructive sleep apnea (adult) (pediatric); D69.6 Thrombocytopenia, unspecified; E11.9 Type 2 diabetes mellitus without complications; Z79.899 Other long term (current) drug therapy; Z86.73 Personal history of transient ischemic attack (TIA), and cerebral infarction without residual deficits; Z98.890 Other specified postprocedural states; Z90.89 Acquired absence of other organs; Z98.49 Cataract extraction status, unspecified eye; Z11.52 Encounter for screening for COVID-19
CPT/HCPCS: 36415; 71045; 76770; 80048; 80053; 81001; 83605; 83735; 84443; 84484; 85025; 85610; 85730; 87040; 87077; 87086; 87186; 87324; 87449; 87505; 93005; 94640; 94760; J0692; J0696; J1160; J3370-JW; J3475; J3490; J7620

== ENCOUNTER 2023-08-14 12:30 | Outpatient (CLI) | payer MEDICARE, BC | END 2023-08-14 12:31 | LOC: PET 12:30 | PROVIDERS: ATTEND Internal Medicine | DX: C91.10 Chronic lymphocytic leukemia of B-cell type not having achieved remission (principal); R59.0 Localized enlarged lymph nodes; R16.1 Splenomegaly, not elsewhere classified | CPT/HCPCS: 78815; A9552 ==

== ENCOUNTER 2023-09-07 14:31 | Outpatient (CLI) | payer MEDICARE, BC ==
[2023-09-07 15:30] LABS: #Eosinphils 0.2 10x3/uL (0.0-0.5); #Monocytes 0.3 10x3/uL (0.0-1.1); %Basophils 0.6 % (0.0-2.0); %Eosinophils 3.5 % (0.0-6.0); %Lymphocytes 44.9 % (18.0-47.0); %Neutrophils 46.2 % (40.0-75.0); Hematocrit 38.6 % (38.8-50.0); Hemoglobin 13.4 g/dL (13.5-17.5); Mean Corpuscular HGB CONC 34.7 g/dL (32.0-36.0); Mean Corpuscular Volume 92.1 fl (81.2-95.1); Mean Platelet Volume 12.1 fl (7.4-10.4); Platelet Count 95 10x3/uL (150-450); RBC Distribution Width 14.4 % (11.5-14.5); Red Blood Cell (RBC) Count 4.19 10x6/uL (4.32-5.72); White Blood Cell (WBC) Count 6.5 10x3/uL (3.5-10.5)
[2023-09-07 15:37] LABS: Anion Gap 12 mmol/L (10-20); BUN (Urea Nitrogen) 16 mg/dL (8.4-25.7); Calc. Creatinine Clearance 0 mL/min (70-130); Calcium 8.8 mg/dL (7.8-10.44); Carbon Dioxide 25 mmol/L (23-31); Chloride 106 mmol/L (98-107); Estimated GFR 66; Glucose 103 mg/dL (80-115); Potassium 3.9 mmol/L (3.5-5.1); Sodium 139 mmol/L (136-145)
== END 2023-09-07 14:32 | disposition home or self-care (01) ==
LOC: LABBT 14:31
PROVIDERS: ATTEND Surgery
DX: Z01.818 Encounter for other preprocedural examination (principal); R59.0 Localized enlarged lymph nodes
CPT/HCPCS: 80048; 85025; 93005; 93010

== ENCOUNTER 2024-03-04 14:00 | Inpatient (IN) | payer MEDICARE, BC ==
[2024-03-04 14:04] VITALS: BMI 39.5
[2024-03-11] MEDS ORDERED: EPINEPHrine 1 MG/ML VIAL ONE (06:10)
[2024-03-11] MEDS ORDERED: Thrombin 5000 UNITS/5 ML VIAL ONE (06:10)
[2024-03-11] MEDS ORDERED: Vancomycin 1 GM VIAL ONE (06:10)
[2024-03-11] MEDS ORDERED: Bupivacaine PF 0.5% 30 ML VIAL ONE (06:11)
[2024-03-11] MEDS ORDERED: Morphine 2 MG/ML VIAL SLOW IVP PRN (06:40)
[2024-03-11] MEDS ORDERED: Milk Of Magnesia 30 ML UDCUP PO PRN (06:40)
[2024-03-11] MEDS ORDERED: HYDROcodone/Acetaminophen 10/325 mg Tablet PO PRN (06:40)
[2024-03-11] MEDS ORDERED: Mag-Al 1200 mg/1200 mg/30 ML UDCUP PO PRN (06:40)
[2024-03-11] MEDS ORDERED: Bisacodyl 10 MG SUPP PR PRN (06:40)
[2024-03-11] MEDS ORDERED: Ondansetron PF 4 MG/2 ML Vial IVP PRN (06:40)
[2024-03-11] MEDS ORDERED: HYDROcodone/Acetaminophen 7.5/325 mg Tablet PO PRN (06:40)
[2024-03-11] MEDS ORDERED: Acetaminophen/Codeine 30-300mg Tablet PO PRN (06:40)
[2024-03-11] MEDS ORDERED: tiZANidine HCl 4 MG TAB PO PRN (06:45)
[2024-03-11] MEDS ORDERED: Sodium Chloride 0.9% 1,000 ML IV SCH (06:45)
[2024-03-11] MEDS ORDERED: Sodium Chloride 0.9% 0 ML ONE (06:48)
[2024-03-11] MEDS ORDERED: CEFAZOLIN 2 GM VIAL ONE (06:48)
[2024-03-11] MEDS ORDERED: Midazolam HCl 2 mg/2 ml Vial ONE (06:48)
[2024-03-11] MEDS ORDERED: Lidocaine 1% MPF 2 ML VIAL ONE (06:48)
[2024-03-11] MEDS ORDERED: Pantoprazole DR 40 MG TAB PO SCH (09:00)
[2024-03-11] MEDS ORDERED: CEFAZOLIN 2 GM in Sodium Chloride 0.9% 100 ML IVPB SCH (14:00)
== END 2024-03-11 07:45 | disposition home or self-care (01) | DRG 55 ==
LOC: SURG A 03-11 05:47
PROVIDERS: ADMIT Neurological Surgery; ATTEND Neurological Surgery
PROC: 3E033XZ Introduction of Vasopressor into Peripheral Vein, Percutaneous Approach (ICD-10-PCS; principal; 2024-03-11)
DX: D32.1 Benign neoplasm of spinal meninges (principal); C91.10 Chronic lymphocytic leukemia of B-cell type not having achieved remission; F41.9 Anxiety disorder, unspecified; F32.A Depression, unspecified; E78.5 Hyperlipidemia, unspecified; I10 Essential (primary) hypertension; Z90.89 Acquired absence of other organs; Z98.890 Other specified postprocedural states
CPT/HCPCS: J0171; J0665; J1642; J2250; J3370

== ENCOUNTER 2024-04-30 10:15 | Outpatient (CLI) | payer MEDICARE, BC | END 2024-04-30 10:16 | disposition home or self-care (01) | LOC: PET 10:15 | PROVIDERS: ATTEND Internal Medicine | DX: C91.10 Chronic lymphocytic leukemia of B-cell type not having achieved remission (principal); M89.9 Disorder of bone, unspecified | CPT/HCPCS: 78815; A9552 ==

== ENCOUNTER 2024-05-26 14:29 | Outpatient (CLI) | payer MEDICARE, BC ==
[2024-05-26 15:46] LABS: #Basophils Less than 0.03 10x3/uL (0.0-0.2); #Eosinophils Less than 0.03 10x3/uL (0.0-0.7); %Basophils 0.2 % (0.0-1.0); %Eosinophils 0.2 % (0.0-10.0); %Monocytes 9.5 % (0.0-10.0); %Neutrophils 79.6 % (42.0-75.0); Hematocrit 32.2 % (42.0-52.0); Hemoglobin 10.7 g/dL (14.0-18.0); Mean Corpuscular HGB CONC 33.2 g/dL (32.0-36.0); Mean Corpuscular Hemoglobin 29.6 pg (27.0-31.0); Mean Corpuscular Volume 89.2 fL (78.0-98.0); Platelet Count 143 10x3/uL (130-400); RBC Distribution Width 14.3 % (11.5-14.5); Red Blood Cell (RBC) Count 3.61 mill/uL (4.70-6.10)
[2024-05-26 16:04] LABS: Anion Gap 9 mmol/L (10-20); BUN (Urea Nitrogen) 11 mg/dL (8.4-25.7); Calc. Creatinine Clearance 0 mL/min (70-130); Calcium 8.9 mg/dL (7.8-10.44); Carbon Dioxide 27 mmol/L (23-31); Chloride 104 mmol/L (98-107); Estimated GFR 92; Glucose 108 mg/dL (83-110); Potassium 4.1 mmol/L (3.5-5.1); Sodium 136 mmol/L (136-145)
[2024-05-26 16:06] LABS: INR-International Normal Ratio 1.1; PTT 37.5 sec (22.9-36.1); Prothrombin Time 13.9 sec (12.0-14.7)
== END 2024-05-26 14:30 | disposition home or self-care (01) ==
LOC: LABBT 14:29
PROVIDERS: ATTEND Neurological Surgery
DX: Z01.812 Encounter for preprocedural laboratory examination (principal); D32.1 Benign neoplasm of spinal meninges; Z79.01 Long term (current) use of anticoagulants
CPT/HCPCS: 80048; 85025; 85610; 85730

== ENCOUNTER 2024-05-26 15:00 | Inpatient (IN) | payer MEDICARE, BC ==
[2024-05-26 14:47] VITALS: BMI 39.5
[2024-06-03] MEDS ORDERED: Vancomycin 1 GM VIAL ONE (06:13)
[2024-06-03] MEDS ORDERED: Bupivacaine PF 0.5% 30 ML VIAL ONE (06:13)
[2024-06-03] MEDS ORDERED: EPINEPHrine 1 MG/ML VIAL ONE (06:13)
[2024-06-03] MEDS ORDERED: Thrombin 5000 UNITS/5 ML VIAL ONE (06:13)
[2024-06-03] MEDS ORDERED: Ondansetron PF 4 MG/2 ML Vial ONE (06:25)
[2024-06-03] MEDS ORDERED: SUCCINYLCHOLINE/SOD CL,ISO/PF 200 MG/10 ML SYRINGE FS ONE (06:25)
[2024-06-03] MEDS ORDERED: Dexamethasone 4 mg/ml Vial ONE (06:25)
[2024-06-03] MEDS ORDERED: Rocuronium Bromide 10 MG/ML (10ML VIAL) ONE (06:25)
[2024-06-03] MEDS ORDERED: Midazolam HCl 2 mg/2 ml Vial ONE (06:26)
[2024-06-03] MEDS ORDERED: PROPOFOL 40 ML ONE (06:26)
[2024-06-03] MEDS ORDERED: fentaNYL PF 100 MCG/2 ML SYRINGE ONE ×2 (06:26→09:41)
[2024-06-03] MEDS ORDERED: Ketamine In 0.9 % NaCl 50 MG/5 ML SYRINGE ONE (06:30)
[2024-06-03] MEDS ORDERED: Bisacodyl 10 MG SUPP PR PRN (06:38)
[2024-06-03] MEDS ORDERED: Ondansetron PF 4 MG/2 ML Vial IVP PRN (06:38)
[2024-06-03] MEDS ORDERED: Milk Of Magnesia 30 ML UDCUP PO PRN (06:38)
[2024-06-03] MEDS ORDERED: diphenhydrAMINE 50 MG/ML VIAL IVP PRN (06:38)
[2024-06-03] MEDS ORDERED: CEFAZOLIN 2 GM VIAL ONE (06:47)
[2024-06-03] MEDS ORDERED: Propofol 1,000 MG/100 ML VIAL IV ONE (06:55)
[2024-06-03] MEDS ORDERED: Vasopressin 20 UNITS/ML VIAL ONE (06:55)
[2024-06-03] MEDS ORDERED: Etomidate 40 MG (20 mL) VIAL ONE (06:56)
[2024-06-03] MEDS ORDERED: Lidocaine 1% PF 5 ML VIAL ONE (07:14)
[2024-06-03] MEDS ORDERED: Albuterol HFA (OR) 200 PUFF INH ONE ×2 (07:14→10:29)
[2024-06-03] MEDS ORDERED: PHENYLEPHRINE-NS 100 MCG/ML 10 ML SYRINGE ONE (07:14)
[2024-06-03] MEDS ORDERED: Ondansetron HCl/PF 4 MG/2 ML Vial IVP PRN (10:01)
[2024-06-03] MEDS ORDERED: Promethazine HCl 25 MG/ML VIAL IM PRN (10:01)
[2024-06-03] MEDS ORDERED: Phenylephrine 40 MG/NS 250 ML 500 ML ONE (10:30)
[2024-06-03] MEDS ORDERED: PROPOFOL 60 ML ONE (10:37)
[2024-06-03] MEDS ORDERED: HYDROmorphone 2 MG/ML VIAL ONE (11:22)
[2024-06-03] MEDS ORDERED: SUGAMMADEX SODIUM 200 MG/2 ML VIAL ONE (12:06)
[2024-06-03] MEDS ORDERED: Adenosine 6 mg (2 mL) VIAL ONE (12:28)
[2024-06-03] MEDS: CEFAZOLIN 2 GM in Sodium Chloride 0.9% 100 ML IVPB SCH (14:52)
[2024-06-03] MEDS: Pantoprazole DR 40 MG TAB PO SCH (14:53)
[2024-06-03] MEDS: Sodium Chloride 0.9% 1,000 ML IV SCH (15:12)
[2024-06-03] MEDS: HYDROcodone/Acetaminophen 7.5/325 mg Tablet PO PRN (21:31)
[2024-06-04] MEDS: HYDROcodone/Acetaminophen 10/325 mg Tablet PO PRN (01:17)
[2024-06-04 04:48] LABS: #Basophils Less than 0.03 10x3/uL (0.0-0.2); #Eosinophils Less than 0.03 10x3/uL (0.0-0.7); %Basophils 0.1 % (0.0-1.0); %Lymphocytes 6.5 % (21.0-51.0); %Monocytes 5.1 % (0.0-10.0); %Neutrophils 87.7 % (42.0-75.0); Hematocrit 26.8 % (42.0-52.0); Hemoglobin 8.9 g/dL (14.0-18.0); Mean Corpuscular HGB CONC 33.2 g/dL (32.0-36.0); Mean Corpuscular Hemoglobin 29.6 pg (27.0-31.0); Mean Platelet Volume 10.8 fL (7.4-10.4); Platelet Count 137 10x3/uL (130-400); RBC Distribution Width 14.4 % (11.5-14.5); Red Blood Cell (RBC) Count 3.01 mill/uL (4.70-6.10)
[2024-06-04 05:23] LABS: Anion Gap 14 mmol/L (10-20); BUN (Urea Nitrogen) 16 mg/dL (8.4-25.7); Calc. Creatinine Clearance 143 mL/min (70-130); Calcium 8.4 mg/dL (7.8-10.44); Carbon Dioxide 21 mmol/L (23-31); Chloride 106 mmol/L (98-107); Estimated GFR 86; Glucose 182 mg/dL (83-110); Potassium 4.1 mmol/L (3.5-5.1); Sodium 137 mmol/L (136-145)
[2024-06-04] MEDS: Acetaminophen/Codeine 30-300mg Tablet PO PRN (11:53)
[2024-06-04] MEDS ORDERED: Metoprolol Tartrate 25 MG TAB PO SCH (16:00)
[2024-06-04] MEDS: Metoprolol Tartrate 25 MG TAB PO SCH (16:05)
[2024-06-04] MEDS: Metoprolol Tartrate 5 MG (5 mL) VIAL ONE (16:45)
[2024-06-04] MEDS: Sodium Chloride 0.9% 500 ML IV SCH (17:30)
[2024-06-04] MEDS: Dofetilide 0.125 MG CAP PO SCH (18:46)
[2024-06-04] MEDS: Morphine 2 MG/ML VIAL SLOW IVP PRN (19:08)
[2024-06-04] MEDS ORDERED: Dofetilide 0.125 MG CAP PO SCH (21:00)
[2024-06-04] MEDS: Sacubitril 49 MG/Valsartan 51 MG TABLET PO SCH (22:00)
[2024-06-04] MEDS: Carvedilol 6.25 MG TAB PO SCH (22:00)
[2024-06-04] MEDS: tiZANidine HCl 4 MG TAB PO PRN (22:02)
[2024-06-04] MEDS: Simvastatin 10 MG TAB PO SCH (22:02)
[2024-06-05] MEDS: Dofetilide 0.125 MG CAP PO SCH (10:39)
[2024-06-05] MEDS ORDERED: Diazepam 5 MG TAB PO PRN (10:46)
[2024-06-05] MEDS: Metoprolol Tartrate 5 MG (5 mL) VIAL ONE (13:00)
[2024-06-05] MEDS: HYDROcodone/Acetaminophen 10/325 mg Tablet PO PRN (20:47)
[2024-06-06] MEDS: Metoprolol Tartrate 5 MG (5 mL) VIAL IVP SCH (03:34)
[2024-06-06 06:52] LABS: Anion Gap 13 mmol/L (10-20); BUN (Urea Nitrogen) 13 mg/dL (8.4-25.7); Calc. Creatinine Clearance 188 mL/min (70-130); Calcium 8.6 mg/dL (7.8-10.44); Carbon Dioxide 25 mmol/L (23-31); Chloride 102 mmol/L (98-107); Estimated GFR 98; Glucose 118 mg/dL (83-110); Magnesium 1.5 mg/dL (1.6-2.6); Potassium 3.8 mmol/L (3.5-5.1); Sodium 136 mmol/L (136-145)
[2024-06-06] MEDS ORDERED: Electrolyte Replacement Protocol FS PRN (13:00)
[2024-06-06] MEDS: Magnesium 2 GM/50 ML(in water) 2 GM in Premix 1 BAG IVPB SCH (13:53)
[2024-06-07 07:58] LABS: Anion Gap 17 mmol/L (10-20); BUN (Urea Nitrogen) 12 mg/dL (8.4-25.7); Calc. Creatinine Clearance 178 mL/min (70-130); Calcium 8.2 mg/dL (7.8-10.44); Carbon Dioxide 20 mmol/L (23-31); Chloride 101 mmol/L (98-107); Estimated GFR 96; Glucose 102 mg/dL (83-110); Magnesium 1.7 mg/dL (1.6-2.6); Potassium 3.9 mmol/L (3.5-5.1); Sodium 134 mmol/L (136-145)
[2024-06-07] MEDS: Magnesium 2 GM/50 ML(in water) 2 GM in Premix 1 BAG IVPB SCH (10:49)
[2024-06-07] MEDS: ALPRAZolam 0.5 MG TAB PO PRN (21:40)
[2024-06-08 03:30] LABS: #Basophils Less than 0.03 10x3/uL (0.0-0.2); %Basophils 0.3 % (0.0-1.0); %Eosinophils 0.6 % (0.0-10.0); %Lymphocytes 9.2 % (21.0-51.0); %Monocytes 6.5 % (0.0-10.0); %Neutrophils 81.2 % (42.0-75.0); Hematocrit 25.3 % (42.0-52.0); Hemoglobin 8.4 g/dL (14.0-18.0); Mean Corpuscular HGB CONC 33.2 g/dL (32.0-36.0); Mean Corpuscular Hemoglobin 29.9 pg (27.0-31.0); Mean Platelet Volume 10.4 fL (7.4-10.4); Platelet Count 129 10x3/uL (130-400); RBC Distribution Width 14.3 % (11.5-14.5); Red Blood Cell (RBC) Count 2.81 mill/uL (4.70-6.10)
[2024-06-08 03:47] LABS: ALT (SGPT) Less than 5 U/L (8-55); AST (SGOT) 10 U/L (5-34); Alkaline Phosphatase 68 U/L (40-110); Anion Gap 13 mmol/L (10-20); BUN (Urea Nitrogen) 11 mg/dL (8.4-25.7); Bilirubin, Total 0.5 mg/dL (0.2-1.2); Calc. Creatinine Clearance 218 mL/min (70-130); Calcium 7.7 mg/dL (7.8-10.44); Carbon Dioxide 22 mmol/L (23-31); Chloride 102 mmol/L (98-107); Estimated GFR 102; Globulin 2.7 g/dL (2.4-3.5); Glucose 92 mg/dL (83-110); Magnesium 1.6 mg/dL (1.6-2.6); Potassium 3.1 mmol/L (3.5-5.1); Protein, Total 4.7 g/dL (5.8-8.1); Sodium 134 mmol/L (136-145)
[2024-06-08] MEDS: Potassium Chloride 20 MEQ TAB PO SCH ×2 (08:35→17:27)
[2024-06-08] MEDS: Magnesium 2 GM/50 ML(in water) 2 GM in Premix 1 BAG IVPB SCH (08:37)
[2024-06-08 15:20] LABS: Potassium 3.3 mmol/L (3.5-5.1)
[2024-06-08] MEDS: cefTRIAXone\\ROCEPHIN 1 GM in Sodium Chloride 0.9% 100 ML IVPB SCH (17:26)
[2024-06-08] MEDS: Magnesium Sulfate In Water 4 GM in Premix 1 BAG IVPB SCH (18:05)
[2024-06-08] MEDS: Doxycycline 100 MG in Sodium Chloride 0.9% 100 ML IVPB SCH (21:04)
[2024-06-08 22:09] LABS: Potassium 3.7 mmol/L (3.5-5.1)
[2024-06-09 06:22] LABS: Magnesium 2.3 mg/dL (1.6-2.6)
[2024-06-09 11:21] LABS: #Basophils Less than 0.03 10x3/uL (0.0-0.2); %Basophils 0.1 % (0.0-1.0); %Eosinophils 0.8 % (0.0-10.0); %Lymphocytes 12.7 % (21.0-51.0); %Neutrophils 76.6 % (42.0-75.0); Hematocrit 30.6 % (42.0-52.0); Hemoglobin 10.4 g/dL (14.0-18.0); Mean Corpuscular Volume 88.2 fL (78.0-98.0); Mean Platelet Volume 10.4 fL (7.4-10.4); Platelet Count 155 10x3/uL (130-400); RBC Distribution Width 14.9 % (11.5-14.5); Red Blood Cell (RBC) Count 3.47 mill/uL (4.70-6.10)
[2024-06-09 11:34] LABS: Anion Gap 13 mmol/L (10-20); BUN (Urea Nitrogen) 14 mg/dL (8.4-25.7); Calc. Creatinine Clearance 190 mL/min (70-130); Calcium 8.4 mg/dL (7.8-10.44); Carbon Dioxide 23 mmol/L (23-31); Chloride 101 mmol/L (98-107); Estimated GFR 98; Glucose 85 mg/dL (83-110); Potassium 3.4 mmol/L (3.5-5.1); Sodium 134 mmol/L (136-145)
[2024-06-09] MEDS: Magnesium 2 GM/50 ML(in water) 2 GM in Premix 1 BAG IVPB SCH (14:54)
[2024-06-09] MEDS: Potassium Chloride 20 MEQ TAB PO SCH (14:55)
[2024-06-09] MEDS: Dofetilide 0.125 MG CAP PO SCH (22:03)
[2024-06-10 04:23] LABS: Anion Gap 16 mmol/L (10-20); BUN (Urea Nitrogen) 12 mg/dL (8.4-25.7); Calc. Creatinine Clearance 202 mL/min (70-130); Calcium 8.3 mg/dL (7.8-10.44); Carbon Dioxide 21 mmol/L (23-31); Chloride 102 mmol/L (98-107); Estimated GFR 100; Glucose 84 mg/dL (83-110); Magnesium 1.9 mg/dL (1.6-2.6); Potassium 3.8 mmol/L (3.5-5.1); Sodium 135 mmol/L (136-145)
[2024-06-10] MEDS ORDERED: Magnesium 2 GM/50 ML(in water) 2 GM in Premix 1 BAG IVPB SCH (08:00)
[2024-06-10 08:46] LABS: Hematocrit 33.2 % (42.0-52.0); Hemoglobin 10.9 g/dL (14.0-18.0); Mean Corpuscular HGB CONC 32.8 g/dL (32.0-36.0); Mean Corpuscular Hemoglobin 29.9 pg (27.0-31.0); Mean Platelet Volume 10.6 fL (7.4-10.4); Platelet Count 192 10x3/uL (130-400); RBC Distribution Width 15.1 % (11.5-14.5); Red Blood Cell (RBC) Count 3.65 mill/uL (4.70-6.10)
[2024-06-10] MEDS: Magnesium 2 GM/50 ML(in water) 2 GM in Premix 1 BAG IVPB SCH (10:38)
[2024-06-10] MEDS: Potassium Chloride 20 MEQ TAB PO SCH (10:42)
[2024-06-10] MEDS: HYDROcodone/Acetaminophen 7.5/325 mg Tablet PO PRN (11:02)
[2024-06-11 05:38] LABS: Chloride 103 mmol/L (98-107); Potassium 4.1 mmol/L (3.5-5.1); Sodium 136 mmol/L (136-145)
[2024-06-11 05:39] LABS: Calcium 8.6 mg/dL (7.8-10.44); Glucose 75 mg/dL (83-110)
[2024-06-11 05:41] LABS: Anion Gap 17 mmol/L (10-20); Carbon Dioxide 20 mmol/L (23-31)
[2024-06-11 05:43] LABS: BUN (Urea Nitrogen) 13 mg/dL (8.4-25.7); Calc. Creatinine Clearance 208 mL/min (70-130); Estimated GFR 101
[2024-06-11 05:45] LABS: Magnesium 1.9 mg/dL (1.6-2.6)
[2024-06-11] MEDS: Magnesium 2 GM/50 ML(in water) 2 GM in Premix 1 BAG IVPB SCH (09:00)
[2024-06-11 11:30] LABS: Hematocrit 30.3 % (42.0-52.0); Hemoglobin 10.2 g/dL (14.0-18.0); Mean Corpuscular HGB CONC 33.7 g/dL (32.0-36.0); Mean Corpuscular Hemoglobin 29.8 pg (27.0-31.0); Mean Corpuscular Volume 88.6 fL (78.0-98.0); Mean Platelet Volume 10.7 fL (7.4-10.4); Platelet Count 166 10x3/uL (130-400); RBC Distribution Width 15.3 % (11.5-14.5); Red Blood Cell (RBC) Count 3.42 mill/uL (4.70-6.10)
[2024-06-11] MEDS: Carvedilol 25 MG TAB PO SCH (14:53)
[2024-06-12 05:17] LABS: Anion Gap 16 mmol/L (10-20); BUN (Urea Nitrogen) 13 mg/dL (8.4-25.7); Calc. Creatinine Clearance 193 mL/min (70-130); Calcium 8.3 mg/dL (7.8-10.44); Carbon Dioxide 21 mmol/L (23-31); Chloride 102 mmol/L (98-107); Estimated GFR 99; Glucose 84 mg/dL (83-110); Magnesium 1.8 mg/dL (1.6-2.6); Potassium 3.5 mmol/L (3.5-5.1); Sodium 135 mmol/L (136-145)
[2024-06-12] MEDS: Magnesium 2 GM/50 ML(in water) 2 GM in Premix 1 BAG IVPB SCH (08:03)
[2024-06-12] MEDS: Potassium Chloride 20 MEQ TAB PO SCH (08:05)
[2024-06-12 08:35] LABS: Hematocrit 31.6 % (42.0-52.0); Hemoglobin 10.4 g/dL (14.0-18.0); Mean Corpuscular HGB CONC 32.9 g/dL (32.0-36.0); Mean Corpuscular Volume 91.1 fL (78.0-98.0); Mean Platelet Volume 11.5 fL (7.4-10.4); Platelet Count 151 10x3/uL (130-400); RBC Distribution Width 15.8 % (11.5-14.5); Red Blood Cell (RBC) Count 3.47 mill/uL (4.70-6.10)
[2024-06-12] MEDS: Carvedilol 25 MG TAB PO SCH (16:57)
[2024-06-12] MEDS: Sodium Chloride 0.9% 500 ML IV SCH (17:12)
[2024-06-12] MEDS: Nystatin/Triamcinolone Cream 15 GM TUBE TOP SCH (17:49)
[2024-06-12] MEDS ORDERED: Nystatin/Triamcinolone Cream 15 GM TUBE TOP SCH (21:00)
[2024-06-13 04:16] LABS: Anion Gap 14 mmol/L (10-20); BUN (Urea Nitrogen) 11 mg/dL (8.4-25.7); Calc. Creatinine Clearance 193 mL/min (70-130); Calcium 8.2 mg/dL (7.8-10.44); Carbon Dioxide 23 mmol/L (23-31); Chloride 103 mmol/L (98-107); Estimated GFR 99; Glucose 105 mg/dL (83-110); Magnesium 1.8 mg/dL (1.6-2.6); Potassium 3.8 mmol/L (3.5-5.1); Sodium 136 mmol/L (136-145)
[2024-06-13] MEDS: Magnesium 2 GM/50 ML(in water) 2 GM in Premix 1 BAG IVPB SCH (08:36)
[2024-06-13 09:01] LABS: Mean Corpuscular HGB CONC 33.3 g/dL (32.0-36.0); Mean Corpuscular Volume 90.1 fL (78.0-98.0); Mean Platelet Volume 10.9 fL (7.4-10.4); Platelet Count 169 10x3/uL (130-400); RBC Distribution Width 15.5 % (11.5-14.5); Red Blood Cell (RBC) Count 3.33 mill/uL (4.70-6.10)
[2024-06-13] MEDS: Metoprolol Tartrate 25 MG TAB PO SCH (17:40)
[2024-06-14] MEDS ORDERED: Morphine 2 MG/ML VIAL SLOW IVP PRN (00:16)
[2024-06-14 04:56] LABS: Anion Gap 13 mmol/L (10-20); BUN (Urea Nitrogen) 9 mg/dL (8.4-25.7); Calc. Creatinine Clearance 193 mL/min (70-130); Calcium 8.5 mg/dL (7.8-10.44); Carbon Dioxide 25 mmol/L (23-31); Chloride 102 mmol/L (98-107); Estimated GFR 99; Glucose 110 mg/dL (83-110); Magnesium 1.8 mg/dL (1.6-2.6); Potassium 3.3 mmol/L (3.5-5.1); Sodium 137 mmol/L (136-145)
[2024-06-14] MEDS ORDERED: Potassium Chloride 20 MEQ TAB PO SCH (08:15)
[2024-06-14 09:23] LABS: Hematocrit 32.9 % (42.0-52.0); Hemoglobin 10.9 g/dL (14.0-18.0); Mean Corpuscular HGB CONC 33.1 g/dL (32.0-36.0); Mean Corpuscular Hemoglobin 30.1 pg (27.0-31.0); Mean Corpuscular Volume 90.9 fL (78.0-98.0); Mean Platelet Volume 11.1 fL (7.4-10.4); Platelet Count 177 10x3/uL (130-400); RBC Distribution Width 15.6 % (11.5-14.5); Red Blood Cell (RBC) Count 3.62 mill/uL (4.70-6.10)
[2024-06-14] MEDS: Magnesium 2 GM/50 ML(in water) 2 GM in Premix 1 BAG IVPB SCH (09:50)
[2024-06-14] MEDS: Potassium Chloride 20 MEQ TAB PO SCH (09:51)
[2024-06-15 04:48] LABS: Anion Gap 14 mmol/L (10-20); BUN (Urea Nitrogen) 8 mg/dL (8.4-25.7); Calc. Creatinine Clearance 190 mL/min (70-130); Calcium 8.6 mg/dL (7.8-10.44); Carbon Dioxide 23 mmol/L (23-31); Chloride 102 mmol/L (98-107); Estimated GFR 98; Glucose 114 mg/dL (83-110); Magnesium 1.8 mg/dL (1.6-2.6); Potassium 3.6 mmol/L (3.5-5.1); Sodium 135 mmol/L (136-145)
[2024-06-15 09:03] LABS: Hematocrit 33.2 % (42.0-52.0); Hemoglobin 10.9 g/dL (14.0-18.0); Mean Corpuscular HGB CONC 32.8 g/dL (32.0-36.0); Mean Corpuscular Hemoglobin 30.1 pg (27.0-31.0); Mean Corpuscular Volume 91.7 fL (78.0-98.0); Mean Platelet Volume 10.9 fL (7.4-10.4); Platelet Count 221 10x3/uL (130-400); RBC Distribution Width 15.7 % (11.5-14.5); Red Blood Cell (RBC) Count 3.62 mill/uL (4.70-6.10)
[2024-06-15] MEDS: Magnesium 2 GM/50 ML(in water) 2 GM in Premix 1 BAG IVPB SCH (09:53)
[2024-06-16 05:45] LABS: Anion Gap 15 mmol/L (10-20); BUN (Urea Nitrogen) 11 mg/dL (8.4-25.7); Calc. Creatinine Clearance 149 mL/min (70-130); Calcium 9.6 mg/dL (7.8-10.44); Carbon Dioxide 24 mmol/L (23-31); Chloride 102 mmol/L (98-107); Estimated GFR 90; Glucose 122 mg/dL (83-110); Magnesium 1.8 mg/dL (1.6-2.6); Potassium 3.7 mmol/L (3.5-5.1); Sodium 137 mmol/L (136-145)
[2024-06-16 07:26] LABS: #Basophils 0.03 10x3/uL (0.0-0.2); %Basophils 0.2 % (0.0-1.0); %Eosinophils 0.6 % (0.0-10.0); %Monocytes 9.9 % (0.0-10.0); %Neutrophils 76.6 % (42.0-75.0); Hemoglobin 11.5 g/dL (14.0-18.0); Mean Corpuscular HGB CONC 32.9 g/dL (32.0-36.0); Mean Corpuscular Volume 91.4 fL (78.0-98.0); Mean Platelet Volume 11.4 fL (7.4-10.4); Platelet Count 235 10x3/uL (130-400); RBC Distribution Width 15.9 % (11.5-14.5); Red Blood Cell (RBC) Count 3.83 mill/uL (4.70-6.10)
[2024-06-16] MEDS: Magnesium 2 GM/50 ML(in water) 2 GM in Premix 1 BAG IVPB SCH (10:01)
[2024-06-16] MEDS: Acetaminophen/Codeine 30-300mg Tablet PO PRN (13:21)
[2024-06-16] MEDS: Metoprolol Tartrate 25 MG TAB PO SCH (22:08)
[2024-06-17 04:01] LABS: #Basophils Less than 0.03 10x3/uL (0.0-0.2); %Basophils 0.2 % (0.0-1.0); %Eosinophils 1.3 % (0.0-10.0); %Lymphocytes 12.5 % (21.0-51.0); %Monocytes 10.3 % (0.0-10.0); %Neutrophils 75.1 % (42.0-75.0); Hematocrit 31.1 % (42.0-52.0); Hemoglobin 9.9 g/dL (14.0-18.0); Mean Corpuscular HGB CONC 31.8 g/dL (32.0-36.0); Mean Corpuscular Hemoglobin 29.3 pg (27.0-31.0); Platelet Count 158 10x3/uL (130-400); RBC Distribution Width 15.9 % (11.5-14.5); Red Blood Cell (RBC) Count 3.38 mill/uL (4.70-6.10)
[2024-06-17 07:17] LABS: Bacteria/HPF None Seen HPF (None Seen); Bilirubin Negative (Negative); Blood, Urine Negative (Negative); CAUTI Indications for Culture Alt mental st,lethar; Clarity Turbid (Clear); Glucose, Urine (Dipstick) Normal (Negative); Ketone, Urine Negative (Negative); Leukocyte 75 Leu/uL (Negative); Nitrite Negative (Negative); Protein, Urine (Dipstick) 10 mg/dL (Neg-Trace); RBC/HPF 0-3 HPF (0-3); Specific Gravity, Urine 1.022 (1.002-1.036); Squamous Epithelial 0-3 HPF (0-3); Triple Phosphate Crystal Rare HPF (None Seen); Urobilinogen Normal mg/dL (Less than 2); pH, Urine 5.5 (5.0-9.0)
[2024-06-17 07:35] LABS: Urine Culture Reflex No No
[2024-06-17] MEDS: Sodium Chloride 0.9% 250 ML 250 ML IVPB SCH (16:04)
[2024-06-17] MEDS: Sertraline 25 MG TAB PO SCH (20:56)
[2024-06-18] MEDS: Digoxin 0.5 MG/2 ML AMP SLOW IVP SCH (00:58)
[2024-06-18 01:01] LABS: #Basophils Less than 0.03 10x3/uL (0.0-0.2); %Basophils 0.1 % (0.0-1.0); %Eosinophils 0.9 % (0.0-10.0); %Lymphocytes 11.2 % (21.0-51.0); %Monocytes 9.7 % (0.0-10.0); %Neutrophils 77.6 % (42.0-75.0); Hematocrit 30.3 % (42.0-52.0); Hemoglobin 9.9 g/dL (14.0-18.0); Mean Corpuscular HGB CONC 32.7 g/dL (32.0-36.0); Mean Corpuscular Volume 91.8 fL (78.0-98.0); Mean Platelet Volume 10.9 fL (7.4-10.4); Platelet Count 156 10x3/uL (130-400); RBC Distribution Width 15.9 % (11.5-14.5)
[2024-06-18 02:11] LABS: Anion Gap 14 mmol/L (10-20); BUN (Urea Nitrogen) 12 mg/dL (8.4-25.7); Calc. Creatinine Clearance 171 mL/min (70-130); Calcium 8.7 mg/dL (7.8-10.44); Carbon Dioxide 24 mmol/L (23-31); Chloride 99 mmol/L (98-107); Estimated GFR 95; Glucose 115 mg/dL (83-110); Magnesium 1.7 mg/dL (1.6-2.6); Potassium 3.6 mmol/L (3.5-5.1); Sodium 133 mmol/L (136-145)
[2024-06-18] MEDS: Magnesium 2 GM/50 ML(in water) 2 GM in Premix 1 BAG IVPB SCH (03:41)
[2024-06-18 07:16] LABS: Magnesium 2.3 mg/dL (1.6-2.6)
[2024-06-18] MEDS ORDERED: Iopamidol 370 76% 100 ML VIAL ONE (10:00)
[2024-06-18] MEDS: Apixaban 5 MG TAB PO SCH (10:26)
[2024-06-18 10:54] LABS: Platelet Count 163 10x3/uL (130-400)
[2024-06-18 11:13] LABS: Fibrinogen 562 mg/dL (253-463)
[2024-06-18 11:14] LABS: INR-International Normal Ratio 1.1; PTT 37.8 sec (22.9-36.1); Prothrombin Time 14.2 sec (12.0-14.7)
[2024-06-18 11:15] LABS: D-Dimer Test 3.71 mcg/mL (0.27-0.43)
[2024-06-18] MEDS: Digoxin 0.25 MG TAB PO SCH (13:39)
[2024-06-18 16:00] LABS: SARS-CoV-2 E Target Negative; SARS-CoV-2 N2 Target Negative; SARS-CoV-2 NAA Rapid Test Not Detected (NotDetected); SARS-CoV-2 RdRP gene Negative
[2024-06-19 05:45] LABS: #Basophils Less than 0.03 10x3/uL (0.0-0.2); %Basophils 0.2 % (0.0-1.0); %Eosinophils 1.1 % (0.0-10.0); %Lymphocytes 11.1 % (21.0-51.0); %Monocytes 8.5 % (0.0-10.0); %Neutrophils 78.6 % (42.0-75.0); Hematocrit 32.8 % (42.0-52.0); Hemoglobin 10.7 g/dL (14.0-18.0); Mean Corpuscular HGB CONC 32.6 g/dL (32.0-36.0); Mean Corpuscular Hemoglobin 29.6 pg (27.0-31.0); Mean Corpuscular Volume 90.6 fL (78.0-98.0); Mean Platelet Volume 11.5 fL (7.4-10.4); Platelet Count 156 10x3/uL (130-400); RBC Distribution Width 15.9 % (11.5-14.5); Red Blood Cell (RBC) Count 3.62 mill/uL (4.70-6.10)
[2024-06-19 06:04] LABS: ALT (SGPT) Less than 5 U/L (8-55); AST (SGOT) 10 U/L (5-34); Albumin 2.5 g/dL (3.4-4.8); Alkaline Phosphatase 66 U/L (40-110); Anion Gap 14 mmol/L (10-20); BUN (Urea Nitrogen) 12 mg/dL (8.4-25.7); Bilirubin, Total 0.8 mg/dL (0.2-1.2); Calc. Creatinine Clearance 176 mL/min (70-130); Calcium 9.2 mg/dL (7.8-10.44); Carbon Dioxide 21 mmol/L (23-31); Chloride 104 mmol/L (98-107); Estimated GFR 96; Globulin 2.6 g/dL (2.4-3.5); Glucose 110 mg/dL (83-110); Potassium 3.5 mmol/L (3.5-5.1); Protein, Total 5.1 g/dL (5.8-8.1); Sodium 135 mmol/L (136-145); Uric Acid 5.3 mg/dL (3.5-7.2)
[2024-06-19] MEDS: Potassium Chloride 20 MEQ TAB PO SCH (08:26)
[2024-06-19] MEDS: Digoxin 0.25 MG TAB PO SCH (08:26)
[2024-06-19 10:34] LABS: Influenza A by NAA Not Detected (NotDetected); Influenza B by NAA Not Detected (NotDetected); SARS-CoV-2 NAA Rapid Test Not Detected (NotDetected)
[2024-06-19] MEDS: Fosaprepitant Dimeglumine 150 MG in 0.9 % Sodium Chloride 145 ML IVPB SCH (11:26)
[2024-06-19] MEDS: PALONOSETRON HCL 0.05 MG/ML 5 ML VIAL IVP SCH (12:10)
[2024-06-19] MEDS: DEXAMETHASONE SOD PHOSPHATE IVPB SCH (12:10)
[2024-06-19] MEDS: SODIUM CHLORIDE 0.9% IVPB SCH ×3 (12:10→16:51)
[2024-06-19] MEDS: DOXORUBICIN IVPB SCH (12:55)
[2024-06-19] MEDS: DACARBAZINE IV SCH (13:52)
[2024-06-19] MEDS: SODIUM CHLORIDE 0.9% IV SCH (13:52)
[2024-06-19] MEDS: VINBLASTINE SULFATE IVPB SCH (16:51)
[2024-06-19 18:22] LABS: HBsAg Index 0.42 S/CO (0-0.99); HIV (1/2) Antibody/Antigen NONREACTIVE (NonReactive); HIV 1/2 INDEX 0.05 S/CO (<1.00); Hep B Surf Ag NONREACTIVE S/CO (NonReactive); Hep C IgG Ab NONREACTIVE S/CO (NonReactive); Hep C Index 0.04 S/CO (0-0.79)
[2024-06-19 23:26] LABS: ALT (SGPT) 5 U/L (8-55); AST (SGOT) 17 U/L (5-34); Albumin 2.5 g/dL (3.4-4.8); Alkaline Phosphatase 65 U/L (40-110); Anion Gap 15 mmol/L (10-20); BUN (Urea Nitrogen) 15 mg/dL (8.4-25.7); Bilirubin, Total 0.9 mg/dL (0.2-1.2); Calc. Creatinine Clearance 196 mL/min (70-130); Calcium 8.9 mg/dL (7.8-10.44); Carbon Dioxide 19 mmol/L (23-31); Chloride 104 mmol/L (98-107); Estimated GFR 99; Globulin 3.1 g/dL (2.4-3.5); Glucose 151 mg/dL (83-110); Magnesium 1.9 mg/dL (1.6-2.6); Potassium 4.5 mmol/L (3.5-5.1); Protein, Total 5.6 g/dL (5.8-8.1); Sodium 133 mmol/L (136-145)
[2024-06-19 23:58] LABS: #Basophils Less than 0.03 10x3/uL (0.0-0.2); #Eosinophils Less than 0.03 10x3/uL (0.0-0.7); %Basophils 0.1 % (0.0-1.0); %Lymphocytes 6.1 % (21.0-51.0); %Monocytes 2.8 % (0.0-10.0); %Neutrophils 90.1 % (42.0-75.0); Hematocrit 30.1 % (42.0-52.0); Mean Corpuscular HGB CONC 33.2 g/dL (32.0-36.0); Mean Corpuscular Hemoglobin 29.9 pg (27.0-31.0); Mean Corpuscular Volume 90.1 fL (78.0-98.0); Mean Platelet Volume 11.7 fL (7.4-10.4); Platelet Count 125 10x3/uL (130-400); RBC Distribution Width 15.7 % (11.5-14.5); Red Blood Cell (RBC) Count 3.34 mill/uL (4.70-6.10)
[2024-06-20] MEDS: Metoprolol Tartrate 5 MG (5 mL) VIAL IVP SCH (00:19)
[2024-06-20] MEDS: Magnesium 2 GM/50 ML(in water) 2 GM in Premix 1 BAG IVPB SCH (00:47)
[2024-06-20 04:06] LABS: #Basophils Less than 0.03 10x3/uL (0.0-0.2); #Eosinophils Less than 0.03 10x3/uL (0.0-0.7); %Lymphocytes 7.5 % (21.0-51.0); %Monocytes 4.9 % (0.0-10.0); %Neutrophils 87.1 % (42.0-75.0); Hematocrit 29.6 % (42.0-52.0); Hemoglobin 9.9 g/dL (14.0-18.0); Mean Corpuscular HGB CONC 33.4 g/dL (32.0-36.0); Mean Corpuscular Hemoglobin 29.9 pg (27.0-31.0); Mean Corpuscular Volume 89.4 fL (78.0-98.0); Mean Platelet Volume 11.6 fL (7.4-10.4); Platelet Count 112 10x3/uL (130-400); RBC Distribution Width 15.6 % (11.5-14.5); Red Blood Cell (RBC) Count 3.31 mill/uL (4.70-6.10)
[2024-06-20 04:37] LABS: ALT (SGPT) 5 U/L (8-55); AST (SGOT) 9 U/L (5-34); Albumin 2.4 g/dL (3.4-4.8); Alkaline Phosphatase 65 U/L (40-110); Anion Gap 14 mmol/L (10-20); BUN (Urea Nitrogen) 17 mg/dL (8.4-25.7); Bilirubin, Total 0.8 mg/dL (0.2-1.2); Calc. Creatinine Clearance 218 mL/min (70-130); Calcium 8.5 mg/dL (7.8-10.44); Carbon Dioxide 22 mmol/L (23-31); Chloride 104 mmol/L (98-107); Estimated GFR 102; Globulin 2.7 g/dL (2.4-3.5); Glucose 142 mg/dL (83-110); Potassium 3.9 mmol/L (3.5-5.1); Protein, Total 5.1 g/dL (5.8-8.1); Sodium 136 mmol/L (136-145); Uric Acid 5.5 mg/dL (3.5-7.2)
[2024-06-20] MEDS: PEGFILGRASTIM-PBBK 6 MG/0.6 ML SYRINGE SQ SCH (17:34)
[2024-06-20] MEDS: Calcium Carbonate 500 MG ChewTAB PO PRN (22:08)
[2024-06-21 03:40] LABS: #Basophils 0.03 10x3/uL (0.0-0.2); #Eosinophils Less than 0.03 10x3/uL (0.0-0.7); %Basophils 0.1 % (0.0-1.0); %Lymphocytes 2.5 % (21.0-51.0); %Monocytes 1.4 % (0.0-10.0); %Neutrophils 95.4 % (42.0-75.0); Hematocrit 32.9 % (42.0-52.0); Hemoglobin 10.7 g/dL (14.0-18.0); Mean Corpuscular HGB CONC 32.5 g/dL (32.0-36.0); Mean Corpuscular Volume 92.2 fL (78.0-98.0); Mean Platelet Volume 12.6 fL (7.4-10.4); Platelet Count 112 10x3/uL (130-400); RBC Distribution Width 15.9 % (11.5-14.5); Red Blood Cell (RBC) Count 3.57 mill/uL (4.70-6.10)
[2024-06-21 03:51] LABS: ALT (SGPT) 5 U/L (8-55); AST (SGOT) 8 U/L (5-34); Albumin 2.4 g/dL (3.4-4.8); Alkaline Phosphatase 69 U/L (40-110); Anion Gap 14 mmol/L (10-20); BUN (Urea Nitrogen) 25 mg/dL (8.4-25.7); Bilirubin, Total 0.8 mg/dL (0.2-1.2); Calc. Creatinine Clearance 185 mL/min (70-130); Calcium 9.1 mg/dL (7.8-10.44); Carbon Dioxide 25 mmol/L (23-31); Chloride 102 mmol/L (98-107); Estimated GFR 97; Globulin 2.9 g/dL (2.4-3.5); Glucose 125 mg/dL (83-110); Potassium 3.9 mmol/L (3.5-5.1); Protein, Total 5.3 g/dL (5.8-8.1); Sodium 137 mmol/L (136-145); Uric Acid 6.3 mg/dL (3.5-7.2)
[2024-06-22 04:22] LABS: Hematocrit 29.5 % (42.0-52.0); Hemoglobin 9.6 g/dL (14.0-18.0); Mean Corpuscular HGB CONC 32.5 g/dL (32.0-36.0); Mean Corpuscular Volume 92.2 fL (78.0-98.0); Mean Platelet Volume 12.6 fL (7.4-10.4); Platelet Count 70 10x3/uL (130-400); RBC Distribution Width 15.9 % (11.5-14.5)
[2024-06-22 04:44] LABS: ALT (SGPT) Less than 5 U/L (8-55); AST (SGOT) 10 U/L (5-34); Albumin 2.2 g/dL (3.4-4.8); Alkaline Phosphatase 66 U/L (40-110); Anion Gap 12 mmol/L (10-20); BUN (Urea Nitrogen) 34 mg/dL (8.4-25.7); Bilirubin, Total 0.7 mg/dL (0.2-1.2); Calc. Creatinine Clearance 202 mL/min (70-130); Calcium 9.4 mg/dL (7.8-10.44); Carbon Dioxide 25 mmol/L (23-31); Chloride 104 mmol/L (98-107); Estimated GFR 100; Globulin 2.5 g/dL (2.4-3.5); Glucose 123 mg/dL (83-110); Potassium 3.7 mmol/L (3.5-5.1); Protein, Total 4.7 g/dL (5.8-8.1); Sodium 137 mmol/L (136-145); Uric Acid 6.5 mg/dL (3.5-7.2)
[2024-06-22 04:57] LABS: Band 22 % (5-11); Hypochromia SLIGHT = 6-15 cells HPF (0-5); Neutrophil 78 % (42-75); Platelet Adequacy Comment Platelets Decreased; Polychromasia SLIGHT = 2-3 cells HPF (0-2)
[2024-06-23 05:16] LABS: Hematocrit 28.5 % (42.0-52.0); Hemoglobin 9.3 g/dL (14.0-18.0); Mean Corpuscular HGB CONC 32.6 g/dL (32.0-36.0); Mean Corpuscular Hemoglobin 29.7 pg (27.0-31.0); Mean Corpuscular Volume 91.1 fL (78.0-98.0); Mean Platelet Volume 13.2 fL (7.4-10.4); Platelet Count 60 10x3/uL (130-400); RBC Distribution Width 15.4 % (11.5-14.5); Red Blood Cell (RBC) Count 3.13 mill/uL (4.70-6.10)
[2024-06-23 05:30] LABS: ALT (SGPT) Less than 5 U/L (8-55); AST (SGOT) 10 U/L (5-34); Albumin 2.2 g/dL (3.4-4.8); Alkaline Phosphatase 74 U/L (40-110); Anion Gap 14 mmol/L (10-20); BUN (Urea Nitrogen) 29 mg/dL (8.4-25.7); Bilirubin, Total 0.8 mg/dL (0.2-1.2); Calc. Creatinine Clearance 211 mL/min (70-130); Calcium 9.1 mg/dL (7.8-10.44); Carbon Dioxide 22 mmol/L (23-31); Chloride 106 mmol/L (98-107); Estimated GFR 101; Globulin 2.6 g/dL (2.4-3.5); Glucose 113 mg/dL (83-110); Potassium 3.7 mmol/L (3.5-5.1); Protein, Total 4.8 g/dL (5.8-8.1); Sodium 138 mmol/L (136-145); Uric Acid 5.4 mg/dL (3.5-7.2)
[2024-06-23 05:42] LABS: Band 9 % (5-11); Eosinophils 3 % (0-10); Hypochromia SLIGHT = 6-15 cells HPF (0-5); Large Platelets 7.8 % (0-5); Lymphocytes 5 % (21-51); Neutrophil 84 % (42-75); Platelet Adequacy Comment Platelets Decreased; Polychromasia SLIGHT = 2-3 cells HPF (0-2)
[2024-06-24 05:14] LABS: Hematocrit 28.1 % (42.0-52.0); Hemoglobin 8.9 g/dL (14.0-18.0); Mean Corpuscular HGB CONC 31.7 g/dL (32.0-36.0); Mean Corpuscular Hemoglobin 29.5 pg (27.0-31.0); Mean Platelet Volume 12.3 fL (7.4-10.4); Platelet Count 52 10x3/uL (130-400); RBC Distribution Width 15.3 % (11.5-14.5); Red Blood Cell (RBC) Count 3.02 mill/uL (4.70-6.10)
[2024-06-24 05:27] LABS: Anion Gap 13 mmol/L (10-20); BUN (Urea Nitrogen) 24 mg/dL (8.4-25.7); Calc. Creatinine Clearance 222 mL/min (70-130); Calcium 8.7 mg/dL (7.8-10.44); Carbon Dioxide 23 mmol/L (23-31); Chloride 109 mmol/L (98-107); Estimated GFR 103; Glucose 114 mg/dL (83-110); Potassium 3.8 mmol/L (3.5-5.1); Sodium 141 mmol/L (136-145)
[2024-06-24 05:58] LABS: Band 28 % (5-11); Hypochromia SLIGHT = 6-15 cells (100X) (0-5/hpf); Lymphocytes 4 % (21-51); Neutrophil 68 % (42-75); Plasma Cells 0 % (0-0); Platelet Adequacy Comment Appears Decreased; Total Cell Count 25
[2024-06-25 05:27] LABS: Hematocrit 29.4 % (42.0-52.0); Hemoglobin 9.5 g/dL (14.0-18.0); Mean Corpuscular HGB CONC 32.3 g/dL (32.0-36.0); Mean Corpuscular Hemoglobin 29.5 pg (27.0-31.0); Mean Corpuscular Volume 91.3 fL (78.0-98.0); Mean Platelet Volume 12.5 fL (7.4-10.4); Platelet Count 79 10x3/uL (130-400); RBC Distribution Width 14.9 % (11.5-14.5); Red Blood Cell (RBC) Count 3.22 mill/uL (4.70-6.10)
[2024-06-25 05:38] LABS: Anion Gap 13 mmol/L (10-20); BUN (Urea Nitrogen) 32 mg/dL (8.4-25.7); Calc. Creatinine Clearance 145 mL/min (70-130); Calcium 8.9 mg/dL (7.8-10.44); Carbon Dioxide 25 mmol/L (23-31); Chloride 107 mmol/L (98-107); Estimated GFR 88; Glucose 131 mg/dL (83-110); Potassium 3.5 mmol/L (3.5-5.1); Sodium 141 mmol/L (136-145)
[2024-06-25 06:02] LABS: Large Platelets 52.9 % (0-5); Lymphocytes 65 % (21-51); Neutrophil 35 % (42-75); Nucleated RBC (Manual Ct) 6 % (0); Platelet Adequacy Comment Platelets Decreased; Polychromasia SLIGHT = 2-3 cells HPF (0-2)
[2024-06-25] MEDS: Potassium Chloride 20 MEQ TAB PO SCH (08:54)
[2024-06-25 15:02] LABS: Actual Bicarbonate (HCO3a) 27.8 mEq/L (22-28); Base Excess (BEa) 3.3 mEq/L (-2.0 to +3.0); CO2 Tension 42.4 mmHg (35.0-45.0); Calcium, Ionized (arterial) 1.18 mmol/L (1.12-1.30); Carboxyhemoglobin (COHb) 0.8 gm% (0.0-3.0); Hematocrit-ABG 26 % (42.0-52.0); Hemoglobin (Hb) 8.8 g/dL (14.0-18.0); Potassium - ABG Lab 3.31 mmol/L (3.70-5.30); pH, Arterial 7.435 (7.35-7.45)
[2024-06-25] MEDS: Digoxin 0.5 MG/2 ML AMP SLOW IVP SCH (15:03)
[2024-06-25] MEDS: Digoxin 0.5 MG/2 ML AMP ONE (15:03)
[2024-06-25 15:08] LABS: O2 Tension (PaO2), arterial 14.9 mmHg (> 70.0)
[2024-06-25] MEDS: Metoprolol Tartrate 5 MG (5 mL) VIAL ONE (15:08)
[2024-06-25] MEDS: Metoprolol Tartrate 5 MG (5 mL) VIAL IVP SCH ×2 (15:08→15:55)
[2024-06-25 15:09] LABS: Puncture Site RIGHT
[2024-06-25] MEDS: Magnesium 2 GM/50 ML(in water) 2 GM in Premix 1 BAG IVPB SCH (15:10)
[2024-06-25] MEDS: Potassium Chloride 20 MEQ in Premix 1 BAG IVPB SCH (15:16)
[2024-06-25] MEDS: Amiodarone 450 MG in Dextrose 5% in Water 250 ML IVPB SCH (16:40)
[2024-06-25] MEDS: Phenylephrine 40 MG/NS 250 ML 250 ML IVPB SCH (16:43)
[2024-06-25] MEDS ORDERED: Amiodarone 150 MG, Admixture Fee 1 EACH in Dextrose 5% in Water 100 ML IVPB SCH (16:45)
[2024-06-25] MEDS: cefTRIAXone\\ROCEPHIN 2 GM in Sodium Chloride 0.9% 100 ML IVPB SCH (16:55)
[2024-06-25 17:27] VITALS: BP 100/57
[2024-06-25] MEDS: Albumin 25% 25 GM (100 mL) BOT IVPB SCH (18:10)
[2024-06-25 19:40] LABS: Hematocrit 24.5 % (42.0-52.0); Mean Corpuscular HGB CONC 32.7 g/dL (32.0-36.0); Mean Corpuscular Hemoglobin 29.6 pg (27.0-31.0); Mean Corpuscular Volume 90.7 fL (78.0-98.0); Mean Platelet Volume 12.6 fL (7.4-10.4); Platelet Count 76 10x3/uL (130-400); RBC Distribution Width 14.8 % (11.5-14.5)
[2024-06-25 19:52] LABS: ALT (SGPT) 9 U/L (8-55); AST (SGOT) 21 U/L (5-34); Albumin 2.4 g/dL (3.4-4.8); Alkaline Phosphatase 66 U/L (40-110); Anion Gap 15 mmol/L (10-20); BUN (Urea Nitrogen) 43 mg/dL (8.4-25.7); Bilirubin, Total 1.2 mg/dL (0.2-1.2); Calc. Creatinine Clearance 88 mL/min (70-130); Calcium 8.4 mg/dL (7.8-10.44); Carbon Dioxide 22 mmol/L (23-31); Chloride 109 mmol/L (98-107); Estimated GFR 48; Globulin 2.5 g/dL (2.4-3.5); Glucose 122 mg/dL (83-110); Potassium 3.8 mmol/L (3.5-5.1); Protein, Total 4.9 g/dL (5.8-8.1); Sodium 142 mmol/L (136-145)
[2024-06-25 20:20] LABS: Anisocytosis SLIGHT = 6-15 cells HPF (0-5); Lymphocytes 88 % (21-51); Neutrophil 13 % (42-75); Ovalocytes SLIGHT = 2-5 cells HPF (0-1); Platelet Adequacy Comment Platelets Decreased; Polychromasia SLIGHT = 2-3 cells HPF (0-2)
[2024-06-25 20:23] LABS: Reflex for Review?? YES
[2024-06-25] MEDS: Apixaban 5 MG TAB PO SCH (23:12)
[2024-06-26 06:42] LABS: Hematocrit 24.7 % (42.0-52.0); Hemoglobin 8.1 g/dL (14.0-18.0); Mean Corpuscular HGB CONC 32.8 g/dL (32.0-36.0); Mean Corpuscular Hemoglobin 29.9 pg (27.0-31.0); Mean Corpuscular Volume 91.1 fL (78.0-98.0); Mean Platelet Volume 12.7 fL (7.4-10.4); Platelet Count 52 10x3/uL (130-400); Red Blood Cell (RBC) Count 2.71 mill/uL (4.70-6.10)
[2024-06-26 07:06] LABS: Anion Gap 16 mmol/L (10-20); BUN (Urea Nitrogen) 48 mg/dL (8.4-25.7); Calc. Creatinine Clearance 105 mL/min (70-130); Calcium 8.5 mg/dL (7.8-10.44); Carbon Dioxide 22 mmol/L (23-31); Chloride 108 mmol/L (98-107); Estimated GFR 59; Glucose 152 mg/dL (83-110); Potassium 3.9 mmol/L (3.5-5.1); Sodium 142 mmol/L (136-145)
[2024-06-26 07:07] LABS: Hypochromia SLIGHT = 6-15 cells HPF (0-5); Large Platelets 46.2 % (0-5); Lymphocytes 85 % (21-51); Neutrophil 15 % (42-75); Platelet Adequacy Comment Platelets Decreased; Polychromasia SLIGHT = 2-3 cells HPF (0-2)
[2024-06-26] MEDS: Ondansetron PF 4 MG/2 ML Vial IVP PRN (08:57)
[2024-06-26] MEDS: Metoprolol Tartrate 5 MG (5 mL) VIAL IVP SCH ×2 (08:57→16:02)
[2024-06-26] MEDS ORDERED: Ipratropium/Albuterol 3 ML NEB NEB PRN (09:50)
[2024-06-26] MEDS: Lactated Ringer's 1,000 ML IV SCH (10:54)
[2024-06-26] MEDS: Cefepime 2 GM in Sodium Chloride 0.9% 100 ML IVPB SCH (10:54)
[2024-06-26] MEDS: Lactulose 20 GM (30 mL) UDCUP PER TUBE SCH (10:55)
[2024-06-26 11:22] LABS: INR-International Normal Ratio 1.4; Prothrombin Time 16.7 sec (12.0-14.7)
[2024-06-26 11:23] LABS: Fibrinogen 836 mg/dL (253-463); PTT 32.9 sec (22.9-36.1)
[2024-06-26 11:25] LABS: D-Dimer Test 2.93 mcg/mL (0.27-0.43)
[2024-06-26 11:29] LABS: Platelet Count 76 10x3/uL (130-400)
[2024-06-26] MEDS: Dexmedetomidine In 0.9 % NaCl 100 ML IVPB SCH (13:04)
[2024-06-26] MEDS: Nystatin 500,000 UNITS/5 ML UDCUP SSW SCH (13:06)
[2024-06-26 14:02] LABS: Lactic Acid 2.31 mmol/L (0.5-2.2)
[2024-06-26] MEDS: Hydrocortisone Sod Succ/PF 100 mg/2 ml Vial IVP SCH ×2 (14:25→18:02)
[2024-06-26 14:29] LABS: Actual Bicarbonate (HCO3a) 22.3 mEq/L (22-28); Base Excess (BEa) -0.8 mEq/L (-2.0 to +3.0); CO2 Tension 30.8 mmHg (35.0-45.0); Calcium, Ionized (arterial) 1.15 mmol/L (1.12-1.30); Hematocrit-ABG 25 % (42.0-52.0); Hemoglobin (Hb) 8.5 g/dL (14.0-18.0); O2 Tension (PaO2), arterial 69.6 mmHg (> 70.0); Potassium - ABG Lab 3.37 mmol/L (3.70-5.30); pH, Arterial 7.478 (7.35-7.45)
[2024-06-26 14:31] LABS: Puncture Site Left Radial artery
[2024-06-26] MEDS: Ipratropium/Albuterol 3 ML NEB NEB SCH (14:34)
[2024-06-26] MEDS ORDERED: Iopamidol-370 76% 500 ML MDV (1 ML CHARGE) ONE (14:47)
[2024-06-26] MEDS: Amiodarone 150 MG in Dextrose 5% in Water 100 ML IVPB SCH (15:03)
[2024-06-26] MEDS: Digoxin 0.5 MG/2 ML AMP SLOW IVP SCH (15:35)
[2024-06-26 15:50] LABS: Hematocrit 24.4 % (42.0-52.0); Mean Corpuscular HGB CONC 32.8 g/dL (32.0-36.0); Mean Corpuscular Hemoglobin 29.5 pg (27.0-31.0); Mean Platelet Volume 13.1 fL (7.4-10.4); Platelet Count 69 10x3/uL (130-400); RBC Distribution Width 14.8 % (11.5-14.5); Red Blood Cell (RBC) Count 2.71 mill/uL (4.70-6.10)
[2024-06-26] MEDS: NOREPINEPHRINE 8 MG/250 ML-D5W 250 ML ONE (15:55)
[2024-06-26] MEDS: Hydrocortisone Sod Succ/PF 100 mg/2 ml Vial ONE (15:55)
[2024-06-26 15:56] LABS: Lactic Acid 2.07 mmol/L (0.5-2.2)
[2024-06-26 16:01] LABS: ALT (SGPT) 7 U/L (8-55); AST (SGOT) 11 U/L (5-34); Alkaline Phosphatase 66 U/L (40-110); Anion Gap 14 mmol/L (10-20); BUN (Urea Nitrogen) 52 mg/dL (8.4-25.7); Bilirubin, Total 1.3 mg/dL (0.2-1.2); Calc. Creatinine Clearance 85 mL/min (70-130); Calcium 8.3 mg/dL (7.8-10.44); Carbon Dioxide 24 mmol/L (23-31); Chloride 110 mmol/L (98-107); Estimated GFR 46; Globulin 2.7 g/dL (2.4-3.5); Glucose 113 mg/dL (83-110); Magnesium 1.9 mg/dL (1.6-2.6); Potassium 3.4 mmol/L (3.5-5.1); Protein, Total 4.7 g/dL (5.8-8.1); Sodium 145 mmol/L (136-145)
[2024-06-26] MEDS: Micafungin 100 MG in Sodium Chloride 0.9% 100 ML IVPB SCH (16:02)
[2024-06-26 16:11] LABS: Phosphorus 1.2 mg/dL (2.3-4.7)
[2024-06-26 16:18] LABS: Band 2 % (5-11); Burr Cells SLIGHT = 2-5 cells HPF (0-1); Eosinophils 4 % (0-10); Lymphocytes 86 % (21-51); Monocytes 2 % (0-10); Neutrophil 2 % (42-75); Platelet Adequacy Comment Platelets Decreased; Polychromasia SLIGHT = 2-3 cells HPF (0-2); Tear Drops SLIGHT = 2-5 cells HPF (0-1)
[2024-06-26] MEDS: Haloperidol Lactate 5 MG/ML VIAL SLOW IVP PRN (17:29)
[2024-06-26] MEDS: Potassium Phosphate 22 MMOL in Sodium Chloride 0.9% 250 ML 250 ML IVPB SCH (17:42)
[2024-06-26] MEDS: Magnesium 2 GM/50 ML(in water) 2 GM in Premix 1 BAG IVPB SCH (17:54)
[2024-06-26] MEDS: Vancomycin (BATCH) 2.5 GM in Premix 1 BAG IVPB SCH (18:02)
[2024-06-26] MEDS: Electrolyte Replacement Protocol 1 EACH FS ONE (18:14)
[2024-06-26] MEDS ORDERED: Vancomycin (BATCH) 1.25 GM in Premix 1 BAG IVPB SCH (21:00)
[2024-06-26] MEDS: Vancomycin 1 GM in Premix 1 BAG IVPB SCH (23:37)
[2024-06-27 04:45] LABS: Fibrinogen 829 mg/dL (253-463); INR-International Normal Ratio 1.8; Prothrombin Time 20.8 sec (12.0-14.7)
[2024-06-27 04:46] LABS: PTT 45.2 sec (22.9-36.1)
[2024-06-27 04:48] LABS: D-Dimer Test 2.34 mcg/mL (0.27-0.43)
[2024-06-27 04:53] LABS: Hematocrit 23.4 % (42.0-52.0); Hemoglobin 7.6 g/dL (14.0-18.0); Mean Corpuscular HGB CONC 32.5 g/dL (32.0-36.0); Mean Corpuscular Hemoglobin 29.3 pg (27.0-31.0); Mean Corpuscular Volume 90.3 fL (78.0-98.0); Mean Platelet Volume 12.3 fL (7.4-10.4); Platelet Count 47 10x3/uL (130-400); RBC Distribution Width 14.6 % (11.5-14.5); Red Blood Cell (RBC) Count 2.59 mill/uL (4.70-6.10)
[2024-06-27 05:02] LABS: Platelet Count 47 10x3/uL (130-400)
[2024-06-27 05:22] LABS: Vancomycin, Random 35.7 ug/mL (See Comment)
[2024-06-27 05:25] LABS: Band 5 % (5-11); Eosinophils 3 % (0-10); Large Platelets 52.6 % (0-5); Lymphocytes 68 % (21-51); Metamyelocyte 3 % (0-0); Monocytes 11 % (0-10); Myelocyte 3 % (0-0); Neutrophil 5 % (42-75); Nucleated RBC (Manual Ct) 3 % (0); Platelet Adequacy Comment Platelets Decreased; RBC Morphology Within Normal Limits; Smudge Cells 7.9 %
[2024-06-27 05:29] LABS: Anion Gap 14 mmol/L (10-20); BUN (Urea Nitrogen) 50 mg/dL (8.4-25.7); Calc. Creatinine Clearance 88 mL/min (70-130); Calcium 7.9 mg/dL (7.8-10.44); Carbon Dioxide 22 mmol/L (23-31); Chloride 111 mmol/L (98-107); Estimated GFR 48; Glucose 187 mg/dL (83-110); Potassium 3.7 mmol/L (3.5-5.1); Sodium 143 mmol/L (136-145)
[2024-06-27 07:53] LABS: Phosphorus 3.8 mg/dL (2.3-4.7)
[2024-06-27] MEDS: NOREPINEPHRINE 8 MG/250 ML-D5W 250 ML IVPB PRN (09:34)
[2024-06-27 12:15] LABS: Magnesium 2.4 mg/dL (1.6-2.6)
[2024-06-27] MEDS: Cefepime 2 GM in Sodium Chloride 0.9% 100 ML IVPB SCH (13:55)
[2024-06-27] MEDS: Bisacodyl 10 MG SUPP PR SCH (15:46)
[2024-06-27] MEDS: Metoprolol Tartrate 25 MG TAB PER TUBE SCH (15:47)
[2024-06-27] MEDS: Dexmedetomidine In 0.9 % NaCl 100 ML IVPB SCH (19:13)
[2024-06-27] MEDS: Sertraline 25 MG TAB PER TUBE SCH (21:14)
[2024-06-27] MEDS: Sacubitril 49 MG/Valsartan 51 MG TABLET PER TUBE SCH (21:14)
[2024-06-27] MEDS: Simvastatin 10 MG TAB PER TUBE SCH (21:14)
[2024-06-27] MEDS: Senokot S 8.6-50 MG TAB PO SCH (21:19)
[2024-06-27] MEDS: Vancomycin (BATCH) 1.25 GM in Premix 1 BAG IVPB SCH (23:45)
[2024-06-28 05:58] LABS: ALT (SGPT) 5 U/L (8-55); AST (SGOT) 5 U/L (5-34); Albumin 1.4 g/dL (3.4-4.8); Alkaline Phosphatase 55 U/L (40-110); Anion Gap 12 mmol/L (10-20); BUN (Urea Nitrogen) 50 mg/dL (8.4-25.7); Bilirubin, Total 1.2 mg/dL (0.2-1.2); Calc. Creatinine Clearance 110 mL/min (70-130); Calcium 8.1 mg/dL (7.8-10.44); Carbon Dioxide 25 mmol/L (23-31); Chloride 114 mmol/L (98-107); Estimated GFR 63; Globulin 2.8 g/dL (2.4-3.5); Glucose 172 mg/dL (83-110); Magnesium 2.4 mg/dL (1.6-2.6); Potassium 3.5 mmol/L (3.5-5.1); Protein, Total 4.2 g/dL (5.8-8.1); Sodium 147 mmol/L (136-145); Uric Acid 5.7 mg/dL (3.5-7.2)
[2024-06-28 06:25] LABS: Platelet Count 36 10x3/uL (130-400)
[2024-06-28 06:35] LABS: Hematocrit 24.5 % (42.0-52.0); Hemoglobin 7.9 g/dL (14.0-18.0); Mean Corpuscular HGB CONC 32.2 g/dL (32.0-36.0); Mean Corpuscular Hemoglobin 29.5 pg (27.0-31.0); Mean Corpuscular Volume 91.4 fL (78.0-98.0); Mean Platelet Volume 13.8 fL (7.4-10.4); Platelet Count 32 10x3/uL (130-400); RBC Distribution Width 14.5 % (11.5-14.5); Red Blood Cell (RBC) Count 2.68 mill/uL (4.70-6.10)
[2024-06-28 06:36] LABS: Fibrinogen 831 mg/dL (253-463); INR-International Normal Ratio 1.7; Prothrombin Time 19.6 sec (12.0-14.7)
[2024-06-28 06:37] LABS: PTT 48.6 sec (22.9-36.1)
[2024-06-28 06:39] LABS: D-Dimer Test 2.16 mcg/mL (0.27-0.43)
[2024-06-28 07:11] LABS: Band 20 % (5-11); Lymphocytes 25 % (21-51); Metamyelocyte 10 % (0-0); Monocytes 10 % (0-10); Myelocyte 5 % (0-0); Neutrophil 25 % (42-75); Platelet Adequacy Comment Platelets Decreased; Polychromasia SLIGHT = 2-3 cells HPF (0-2)
[2024-06-28] MEDS: Pantoprazole 40 MG VIAL IVP SCH (08:34)
[2024-06-28] MEDS: Digoxin 0.25 MG TAB PER TUBE SCH (10:27)
[2024-06-28] MEDS: Polyethylene Glycol 3350 17 GM Packet PO SCH (10:29)
[2024-06-28] MEDS: Potassium Chloride 40 MEQ in Premix 1 BAG IVPB SCH (11:31)
[2024-06-28] MEDS: Potassium Chloride 20 MEQ in Premix 1 BAG IVPB SCH (11:41)
[2024-06-28] MEDS: Potassium Chloride 20 MEQ TAB PO SCH (11:41)
[2024-06-28 15:52] LABS: Potassium 3.7 mmol/L (3.5-5.1)
[2024-06-28] MEDS: Vancomycin 1.5 GRAM/300 ML BAG 1.5 GM in Premix 1 BAG IVPB SCH (20:28)
[2024-06-29] MEDS: Dexmedetomidine In 0.9 % NaCl 100 ML IVPB SCH ×2 (01:14→13:47)
[2024-06-29 03:48] LABS: Hematocrit 23.8 % (42.0-52.0); Hemoglobin 7.7 g/dL (14.0-18.0); Mean Corpuscular HGB CONC 32.4 g/dL (32.0-36.0); Mean Corpuscular Hemoglobin 29.7 pg (27.0-31.0); Mean Corpuscular Volume 91.9 fL (78.0-98.0); Mean Platelet Volume 14.4 fL (7.4-10.4); Platelet Count 35 10x3/uL (130-400); RBC Distribution Width 14.6 % (11.5-14.5); Red Blood Cell (RBC) Count 2.59 mill/uL (4.70-6.10)
[2024-06-29 03:55] LABS: Fibrinogen 874 mg/dL (253-463); INR-International Normal Ratio 1.3; Prothrombin Time 15.9 sec (12.0-14.7)
[2024-06-29 03:56] LABS: PTT 39.2 sec (22.9-36.1); Platelet Count 35 10x3/uL (130-400)
[2024-06-29 03:58] LABS: D-Dimer Test 1.79 mcg/mL (0.27-0.43)
[2024-06-29 03:59] LABS: ALT (SGPT) 6 U/L (8-55); AST (SGOT) 5 U/L (5-34); Albumin 1.4 g/dL (3.4-4.8); Alkaline Phosphatase 53 U/L (40-110); Anion Gap 13 mmol/L (10-20); BUN (Urea Nitrogen) 51 mg/dL (8.4-25.7); Calc. Creatinine Clearance 114 mL/min (70-130); Calcium 8.3 mg/dL (7.8-10.44); Carbon Dioxide 22 mmol/L (23-31); Chloride 117 mmol/L (98-107); Estimated GFR 65; Globulin 2.8 g/dL (2.4-3.5); Glucose 173 mg/dL (83-110); Magnesium 2.4 mg/dL (1.6-2.6); Potassium 3.7 mmol/L (3.5-5.1); Protein, Total 4.2 g/dL (5.8-8.1); Sodium 148 mmol/L (136-145); Uric Acid 5.7 mg/dL (3.5-7.2)
[2024-06-29 05:21] LABS: Band 43 % (5-11); Burr Cells SLIGHT = 2-5 cells HPF (0-1); Dohle Bodies SLIGHT; Large Platelets 49.6 % (0-5); Lymphocytes 12 % (21-51); Monocytes 5 % (0-10); Neutrophil 40 % (42-75); Nucleated RBC (Manual Ct) 2 % (0); Platelet Adequacy Comment Platelets Decreased; Polychromasia SLIGHT = 2-3 cells HPF (0-2); Smudge Cells 4.3 %; Toxic Granulation SLIGHT
[2024-06-29 08:51] LABS: Hemoglobin A1c 5.5 % (4.0-6.0)
[2024-06-29] MEDS: Dextrose 5 %-0.45 % NaCl 1,000 ML IV SCH (12:17)
[2024-06-29] MEDS: Vancomycin (BATCH) 1.5 GM in Premix 1 BAG IVPB SCH (20:09)
[2024-06-30 04:07] LABS: Hematocrit 24.1 % (42.0-52.0); Hemoglobin 7.6 g/dL (14.0-18.0); Mean Corpuscular HGB CONC 31.5 g/dL (32.0-36.0); Mean Corpuscular Hemoglobin 29.7 pg (27.0-31.0); Mean Corpuscular Volume 94.1 fL (78.0-98.0); Mean Platelet Volume 13.1 fL (7.4-10.4); Platelet Count 45 10x3/uL (130-400); Platelet Count 49 10x3/uL (130-400); RBC Distribution Width 14.7 % (11.5-14.5); Red Blood Cell (RBC) Count 2.56 mill/uL (4.70-6.10)
[2024-06-30 04:19] LABS: ALT (SGPT) 5 U/L (8-55); AST (SGOT) 5 U/L (5-34); Albumin 1.4 g/dL (3.4-4.8); Alkaline Phosphatase 49 U/L (40-110); Anion Gap 12 mmol/L (10-20); BUN (Urea Nitrogen) 53 mg/dL (8.4-25.7); Bilirubin, Total 0.8 mg/dL (0.2-1.2); Calc. Creatinine Clearance 102 mL/min (70-130); Calcium 8.3 mg/dL (7.8-10.44); Carbon Dioxide 22 mmol/L (23-31); Chloride 119 mmol/L (98-107); Estimated GFR 58; Globulin 2.5 g/dL (2.4-3.5); Glucose 181 mg/dL (83-110); Magnesium 2.3 mg/dL (1.6-2.6); Potassium 3.7 mmol/L (3.5-5.1); Protein, Total 3.9 g/dL (5.8-8.1); Sodium 149 mmol/L (136-145); Uric Acid 6.6 mg/dL (3.5-7.2)
[2024-06-30 04:38] LABS: Fibrinogen 656 mg/dL (253-463)
[2024-06-30 04:39] LABS: Anisocytosis SLIGHT = 6-15 cells HPF (0-5); Band 36 % (5-11); Burr Cells SLIGHT = 2-5 cells HPF (0-1); Large Platelets 27.4 % (0-5); Lymphocytes 9 % (21-51); Metamyelocyte 6 % (0-0); Monocytes 8 % (0-10); Myelocyte 4 % (0-0); Neutrophil 38 % (42-75); Ovalocytes SLIGHT = 2-5 cells HPF (0-1); Platelet Adequacy Comment Platelets Decreased; Smudge Cells 3.8 %
[2024-06-30 04:40] LABS: D-Dimer Test 1.53 mcg/mL (0.27-0.43); INR-International Normal Ratio 1.3; PTT 37.2 sec (22.9-36.1); Prothrombin Time 16.2 sec (12.0-14.7)
[2024-06-30] MEDS: Cefepime 2 GM in Sodium Chloride 0.9% 100 ML IVPB SCH (09:42)
[2024-06-30 15:08] VITALS: BMI 36.9
[2024-06-30] MEDS: Sodium Bicarb 50 MEQ/50 ML Abboject 8.4% SYRINGE IVP SCH (17:24)
[2024-06-30] MEDS: Morphine 2 MG/ML VIAL SLOW IVP SCH (20:48)
[2024-07-01] MEDS ORDERED: Sterile Water 10 ML VIAL FS PRN (01:15)
[2024-07-01] MEDS: OLANZapine 10 MG VIAL IM SCH (01:24)
[2024-07-01 03:45] LABS: Platelet Count 59 10x3/uL (130-400)
[2024-07-01 03:47] LABS: Hematocrit 27.8 % (42.0-52.0); Mean Corpuscular HGB CONC 32.4 g/dL (32.0-36.0); Mean Corpuscular Hemoglobin 29.2 pg (27.0-31.0); Mean Corpuscular Volume 90.3 fL (78.0-98.0); Mean Platelet Volume 13.3 fL (7.4-10.4); Platelet Count 61 10x3/uL (130-400); RBC Distribution Width 15.3 % (11.5-14.5); Red Blood Cell (RBC) Count 3.08 mill/uL (4.70-6.10)
[2024-07-01 03:51] LABS: Fibrinogen 578 mg/dL (253-463)
[2024-07-01 03:52] LABS: INR-International Normal Ratio 1.4; PTT 35.6 sec (22.9-36.1); Prothrombin Time 16.7 sec (12.0-14.7)
[2024-07-01 03:53] LABS: D-Dimer Test 1.97 mcg/mL (0.27-0.43)
[2024-07-01 04:15] LABS: ALT (SGPT) 5 U/L (8-55); AST (SGOT) 8 U/L (5-34); Albumin 1.6 g/dL (3.4-4.8); Alkaline Phosphatase 54 U/L (40-110); Anion Gap 12 mmol/L (10-20); BUN (Urea Nitrogen) 53 mg/dL (8.4-25.7); Bilirubin, Total 1.1 mg/dL (0.2-1.2); CK (CPK) 11 U/L (30-200); Calc. Creatinine Clearance 82 mL/min (70-130); Calcium 8.2 mg/dL (7.8-10.44); Carbon Dioxide 20 mmol/L (23-31); Chloride 121 mmol/L (98-107); Estimated GFR 50; Globulin 2.5 g/dL (2.4-3.5); Glucose 178 mg/dL (83-110); Potassium 3.1 mmol/L (3.5-5.1); Protein, Total 4.1 g/dL (5.8-8.1); Sodium 150 mmol/L (136-145); Uric Acid 7.2 mg/dL (3.5-7.2)
[2024-07-01 04:18] LABS: Lymphocytes 5 % (21-51)
[2024-07-01 04:19] LABS: Band 56 % (5-11); Dohle Bodies SLIGHT; Large Platelets 8.3 % (0-5); Metamyelocyte 6 % (0-0); Monocytes 5 % (0-10); Myelocyte 1 % (0-0); Neutrophil 26 % (42-75); Nucleated RBC (Manual Ct) 4 % (0); Platelet Adequacy Comment Platelets Decreased; Polychromasia SLIGHT = 2-3 cells HPF (0-2); Reactive Lymphocytes 1 % (0-10); Smudge Cells 8.3 %
[2024-07-01] MEDS: Potassium Chloride 40 MEQ in Premix 1 BAG IVPB SCH (05:48)
[2024-07-01 11:30] LABS: Actual Bicarbonate (HCO3v) 22.7 mEq/L (22-28); Base Excess -1.1 mEq/L (-2.0 to +3.0); Calcium, Ionized (venous) 1.19 mmol/L (1.16-1.32); Chloride (VBG) 119 mmol/L (98-106); Hematocrit-VBG 28 % (42.0-52.0); Hemoglobin (Hb) 9.6 g/dL (12.6-17.4); Potassium (VBG) 3.42 mmol/L (3.70-5.30); Sodium 147 mmol/L (133-146); pH (venous) 7.437 (7.32-7.43)
[2024-07-01 17:32] VITALS: TEMP 98.8
== END 2024-07-01 17:06 | disposition hospice, inpatient (51) | DRG 28 ==
LOC: SURG A 06-03 06:10 → CCU 06-03 14:39 → EDSTATUS 06-03 15:00 → SURG B 06-04 08:52 → 2SE 06-04 16:52 → MSONC 06-18 18:02 → IMCU/EMU 06-25 14:42 → CCU 06-25 16:28
PROVIDERS: ADMIT Neurological Surgery; ATTEND Family Medicine
PROC: 00BX0ZZ Excision of Thoracic Spinal Cord, Open Approach (ICD-10-PCS; principal; 2024-06-03)
PROC: 3E033XZ Introduction of Vasopressor into Peripheral Vein, Percutaneous Approach (ICD-10-PCS; 2024-06-03)
PROC: 4A133R1 Monitoring of Arterial Saturation, Peripheral, Percutaneous Approach (ICD-10-PCS; 2024-06-25)
PROC: 30233J1 Transfusion of Nonautologous Serum Albumin into Peripheral Vein, Percutaneous Approach (ICD-10-PCS; 2024-06-25)
PROC: 5A09457 Assistance with Respiratory Ventilation, 24-96 Consecutive Hours, Continuous Positive Airway Pressure (ICD-10-PCS; 2024-06-25)
PROC: 02HV33Z Insertion of Infusion Device into Superior Vena Cava, Percutaneous Approach (ICD-10-PCS; 2024-06-26)
PROC: 5A0945A Assistance with Respiratory Ventilation, 24-96 Consecutive Hours, High Flow/Velocity Cannula (ICD-10-PCS; 2024-06-26)
PROC: 3E03329 Introduction of Other Anti-infective into Peripheral Vein, Percutaneous Approach (ICD-10-PCS; 2024-06-27)
PROC: 30233N1 Transfusion of Nonautologous Red Blood Cells into Peripheral Vein, Percutaneous Approach (ICD-10-PCS; 2024-06-30)
DX: C70.1 Malignant neoplasm of spinal meninges (principal); A41.9 Sepsis, unspecified organism; G93.41 Metabolic encephalopathy; R57.0 Cardiogenic shock; J69.0 Pneumonitis due to inhalation of food and vomit; R65.21 Severe sepsis with septic shock; D61.810 Antineoplastic chemotherapy induced pancytopenia; G95.20 Unspecified cord compression; C91.10 Chronic lymphocytic leukemia of B-cell type not having achieved remission; I47.20 Ventricular tachycardia, unspecified; C81.90 Hodgkin lymphoma, unspecified, unspecified site; N17.9 Acute kidney failure, unspecified; I42.9 Cardiomyopathy, unspecified; Z51.5 Encounter for palliative care; F41.9 Anxiety disorder, unspecified; Z98.890 Other specified postprocedural states; Z87.891 Personal history of nicotine dependence; Z79.899 Other long term (current) drug therapy; I48.91 Unspecified atrial fibrillation; E78.5 Hyperlipidemia, unspecified; I50.9 Heart failure, unspecified; I11.0 Hypertensive heart disease with heart failure; I25.10 Atherosclerotic heart disease of native coronary artery without angina pectoris; Z79.01 Long term (current) use of anticoagulants; E66.01 Morbid (severe) obesity due to excess calories; Z68.36 Body mass index [BMI] 36.0-36.9, adult; F32.A Depression, unspecified; Q05.9 Spina bifida, unspecified; J44.9 Chronic obstructive pulmonary disease, unspecified; G47.33 Obstructive sleep apnea (adult) (pediatric); K76.82 Hepatic encephalopathy
CPT/HCPCS: 36415; 36416; 36430; 36600; 70450; 70551; 71045; 71275; 74018; 80048; 80053; 80202; 81001; 82140; 82550; 82607; 82805; 83036; 83605; 83615; 83735; 84100; 84145; 84443; 84550; 85025; 85027; 85049; 85060; 85300; 85362; 85384; 85610; 85730; 86803; 86850; 86900; 86901; 87040; 87086; 87340; 87389; 88184; 88185; 88189; 88305; 88341; 88342; 88361; 93005; 93010; 93306; 93970; 94640; 94660; A4314; C1889; J0153; J0171; J0282; J0665; J0692; J0696; J1100; J1160; J1453; J1630; J1720; J2248; J2250; J2272; J2405; J2469; J2470; J2704; J3370; J3475; J3480; J3490; J7030; J7042; J7050; J7070; J7120; J7620; J8499; J9000; J9130; J9360; P9016; P9047; Q5130; Q9967; U0002